=== PATIENT | male | born 1945 | race Caucasian/White ===

== ENCOUNTER 2016-06-08 14:21 | Inpatient (IN) | payer MEDICARE ==
[~2016-06-08] VITALS: Ht 162.6 cm; Wt 54.7 kg
[2016-06-08] VITALS (8 sets, daily range): BP systolic 154–194; BP diastolic 81–104; PULSE 86–106; RESP 16–18; TEMP 98.2–98.3; O2SAT 96–98
[~2016-06-08 14:21] MED LIST: ALPR0.25 PO; ASPI81TA82 PO; ATOR20TA PO; CARD180C5 PO; LEXA5TAB PO; LISI-360 PO; MEGE40TA3 PO; METO100T PO; NOVONP2 SQ; TRIA50 PO; ZOLP10TA3 PO
[2016-06-08] MEDS ORDERED: SODIUM CHLOR 0.9% 1000 ML INJ 1,000 ML IV SCH (14:51)
[2016-06-08] MEDS ORDERED: MORPHINE SULFATE 4 MG/ML INJ IV PUSH ONE (15:00)
[2016-06-08] MEDS ORDERED: ONDANSETRON HCL 4 MG/2 ML VIAL IVP ONE (15:00)
[2016-06-08] MEDS ORDERED: SODIUM CHLORIDE 0.9% FLUSH 5 ML FLUSH IVF PRN (15:00)
--- NOTE | 2016-06-08 15:17 | PD ---
HPI Chief Complaint: GI Complaint Time Seen by Provider: 14:35 Travel History International Travel<30 days: No Contact w/Intl Traveler<30days: No Traveled to known affect area: No History of Present Illness HPI The patient is a 71-year-old male who presents to the emergency department for nausea, vomiting, difficulty swallowing. The patient has a history of pancreatic cancer who is currently being treated by his oncologist, Dr. Amaya. The patient last received chemotherapy last , is next scheduled to have chemotherapy on June 23. The patient was recently evaluated at [facility] in [place], [place], for a second opinion in regards to his pancreatic cancer for possible evaluation of being placed into a new study. The patient also states he underwent surgery at [facility] in [place], [place], for possible Whipple procedure. However, the patient was noted to have a mass on his liver and a Whipple procedure was aborted. The patient did have a stent placed into the biliary system secondary to obstruction by art coordinator in [place], [place]. The patient's primary physician in the local areas Dr. Gonzales, his oncologist is Dr. Amaya , and his local art coordinator is Dr. Durham. The patient notes increasing difficulty swallowing has been unable to swallow any solids since [place] when he had a small piece of wire. He notes increasing difficulty in swallowing liquids and secretions. Patient complains of pain and spasming of the superior esophageal area when swallowing. He also notes increasing lethargy and weakness secondary to poor oral intake. PFSH Past Medical History Anxiety: Yes Cancer: Yes (PANCREAS) Cardiovascular Problems: No High Cholesterol: Yes Diabetes: Yes Endocrine: No Genitourinary: No Hepatitis: No Hiatal Hernia: No Hypertension: Yes Immune Disorder: No Musculoskeletal: No Neurologic: No Psychiatric: No Reproductive: No Respiratory: No Thyroid Disease: No Past Surgical History Abdominal Surgery: No AICD: No Cardiac Surgery: No Ear Surgery: No Endocrine Surgery: No Eye Surgery: Yes (BILAT CATARACTS) Genitourinary Surgery: No Gynecologic Surgery: No Joint Replacement: No Oral Surgery: No Pacemaker: No Thoracic Surgery: No Social History Alcohol Use: Yes (DAILY) Tobacco Use: No Substance Use: No Allergies-Medications (Allergen,Severity, Reaction): Coded Allergies: No Known Allergies (Unverified , 1/2/17) Reported Meds & Prescriptions Reported Meds & Active Scripts Active Reported Oxycodone (Oxycodone HCl) 5 Mg Cap 5 Mg PO Q4H PRN Creon (Amylase/Lipase/Protease) 24,000-76,000-120,000 Units Cap 1 Cap PO QID Hydrocodone-Acetaminophen 5-325 mg Tab 1 Tab PO Q4H PRN Potassium Chloride ER (Potassium Chloride) 20 Meq Tab 20 Meq PO DAILY Mirtazapine 15 Mg Tab Unknown Dose PO DAILY Novolin N Inj (Insulin Human NPH) 1,000 Unit/10 Ml Vial 8 Units SQ BID Aspirin 81 Mg Tabdr 81 Mg PO DAILY Zolpidem (Zolpidem Tartrate) 10 Mg Tab 10 Mg PO HS PRN Atorvastatin (Atorvastatin Calcium) 20 Mg Tab 20 Mg PO HS Diltiazem CD 24 HR 180 Mg Caper 180 Mg PO DAILY Metoprolol Tartrate 100 Mg Tab 100 Mg PO BID Lisinopril 10 Mg Tab 10 Mg PO DAILY Review of Systems Except as stated in HPI: all other systems reviewed are Neg General / Constitutional: No: Fever HENT: No: Lightheadedness Cardiovascular: Positive: Chest Pain or Discomfort (pain located in the superior chest area when swallowing) Gastrointestinal: Positive: Nausea, Abdominal Pain (chronic abdominal pain secondary to pancreatic cancer), Dysphagia, Loss of Appetite, No: Vomiting, Diarrhea Genitourinary: No: Decreased Urinary Output Musculoskeletal: Positive: Weakness Neurologic: Positive: Weakness Physical Exam Narrative GENERAL: Awake, alert, pleasant 71-year-old male who appears his stated age and is in no acute respiratory distress. Mild cachexia. SKIN: Warm and dry. HEAD: Atraumatic. Normocephalic. EYES: Pupils equal and round. No scleral icterus. No injection or drainage. ENT: No nasal bleeding or discharge. Dry mucous membranes. No visible plaques in the oropharynx. NECK: Trachea midline. No JVD. CARDIOVASCULAR: Regular, tachycardic with a heart rate of 110. Port in place left chest wall. RESPIRATORY: No accessory muscle use. Clear to auscultation. Breath sounds equal bilaterally. GASTROINTESTINAL: Abdomen soft, healing midline surgical scar. No rebound tenderness. MUSCULOSKELETAL: No obvious deformities. No clubbing. No cyanosis. No edema. NEUROLOGICAL: Awake and alert. No obvious cranial nerve deficits. Motor grossly within normal limits. Normal speech. PSYCHIATRIC: Appropriate mood and affect; insight and judgment normal. Data Data Last Documented VS Vital Signs Date Time Temp Pulse Resp B/P Pulse Ox O2 Delivery O2 Flow Rate FiO2 06/08/16 15:28 16 06/08/16 14:45 98 Room Air 06/08/16 14:45 98.2 97 154/83 Orders Complete Blood Count With Diff (06/08/16 14:51) Comprehensive Metabolic Panel (06/08/16 14:51) Lipase (06/08/16 14:51) Lactic Acid (06/08/16 14:51) Urinalysis - C+S If Indicated (06/08/16 14:51) Iv Access Insert/Monitor (06/08/16 14:51) Ecg Monitoring (06/08/16 14:51) Oximetry (06/08/16 14:51) Morphine Inj (Morphine Inj) (06/08/16 15:00) Ondansetron Inj (Zofran Inj) (06/08/16 15:00) Sodium Chlor 0.9% 1000 Ml Inj (Ns 1000 M (06/08/16 14:51) Sodium Chloride 0.9% Flush (Ns Flush) (06/08/16 15:00) Chest, Single Ap (06/08/16 14:51) Consult Gastroenterology (06/08/16 ) Labs Laboratory Tests Test 06/08/16 15:00 White Blood Count 5.4 TH/MM3 Red Blood Count 3.91 MIL/MM3 Hemoglobin 10.5 GM/DL Hematocrit 32.3 % Mean Corpuscular Volume 82.4 FL Mean Corpuscular Hemoglobin 26.8 PG Mean Corpuscular Hemoglobin 32.5 % Concent Red Cell Distribution Width 15.3 % Platelet Count 278 TH/MM3 Mean Platelet Volume 7.1 FL Neutrophils (%) (Auto) 75.0 % Lymphocytes (%) (Auto) 14.9 % Monocytes (%) (Auto) 5.5 % Eosinophils (%) (Auto) 3.8 % Basophils (%) (Auto) 0.8 % Neutrophils # (Auto) 4.1 TH/MM3 Lymphocytes # (Auto) 0.8 TH/MM3 Monocytes # (Auto) 0.3 TH/MM3 Eosinophils # (Auto) 0.2 TH/MM3 Basophils # (Auto) 0.0 TH/MM3 CBC Comment DIFF FINAL Differential Comment Sodium Level 139 MEQ/L Potassium Level 3.3 MEQ/L Chloride Level 102 MEQ/L Carbon Dioxide Level 23.5 MEQ/L Anion Gap 14 MEQ/L Blood Urea Nitrogen 26 MG/DL Creatinine 0.70 MG/DL Estimat Glomerular Filtration 111 ML/MIN Rate Random Glucose 124 MG/DL Lactic Acid Level 0.9 mmol/L Calcium Level 9.2 MG/DL Total Bilirubin 0.5 MG/DL Aspartate Amino Transf 30 U/L (AST/SGOT) Alanine Aminotransferase 37 U/L (ALT/SGPT) Alkaline Phosphatase 158 U/L Total Protein 7.2 GM/DL Albumin 3.1 GM/DL Lipase 37 U/L [facility] Medical Decision Making Medical Screen Exam Complete: Yes Emergency Medical Condition: Yes Medical Record Reviewed: Yes Interpretation(s) Chest x-ray reveals no evidence of acute cardiopulmonary disease Laboratory Tests Test 06/08/16 15:00 White Blood Count 5.4 TH/MM3 Red Blood Count 3.91 MIL/MM3 Hemoglobin 10.5 GM/DL Hematocrit 32.3 % Mean Corpuscular Volume 82.4 FL Mean Corpuscular Hemoglobin 26.8 PG Mean Corpuscular Hemoglobin 32.5 % Concent Red Cell Distribution Width 15.3 % Platelet Count 278 TH/MM3 Mean Platelet Volume 7.1 FL Neutrophils (%) (Auto) 75.0 % Lymphocytes (%) (Auto) 14.9 % Monocytes (%) (Auto) 5.5 % Eosinophils (%) (Auto) 3.8 % Basophils (%) (Auto) 0.8 % Neutrophils # (Auto) 4.1 TH/MM3 Lymphocytes # (Auto) 0.8 TH/MM3 Monocytes # (Auto) 0.3 TH/MM3 Eosinophils # (Auto) 0.2 TH/MM3 Basophils # (Auto) 0.0 TH/MM3 CBC Comment DIFF FINAL Differential Comment Sodium Level 139 MEQ/L Potassium Level 3.3 MEQ/L Chloride Level 102 MEQ/L Carbon Dioxide Level 23.5 MEQ/L Anion Gap 14 MEQ/L Blood Urea Nitrogen 26 MG/DL Creatinine 0.70 MG/DL Estimat Glomerular Filtration 111 ML/MIN Rate Random Glucose 124 MG/DL Lactic Acid Level 0.9 mmol/L Calcium Level 9.2 MG/DL Total Bilirubin 0.5 MG/DL Aspartate Amino Transf 30 U/L (AST/SGOT) Alanine Aminotransferase 37 U/L (ALT/SGPT) Alkaline Phosphatase 158 U/L Total Protein 7.2 GM/DL Albumin 3.1 GM/DL Lipase 37 U/L Differential Diagnosis Differential diagnosis includes esophageal stricture, esophagitis, esophageal compression, metastatic cancer, pancreatic mass, esophageal ring. Narrative Course The patient's port was accessed, labs are drawn and sent, and the patient was placed on cardiac telemetry monitoring and continuous pulse oximetry monitoring. The patient was administered IV fluids, Zofran, and morphine for his symptoms. Chest x-ray was obtained. LFTs and lipase were sent to lab. The patient's BUN is 26 with creatinine 0.7, greater than a 21 ratio consistent with dehydration. Potassium is mildly low at 3.3, therefore, the potassium was replaced intravenously. I had a discussion with Dr. Hurst who agrees with admission. I discussed the patient with the on-call gastric urologist for Dr. Rodriguez, Dr. Brewer, who agrees with transferring the patient to [facility], as the patient may need direct endoscopy to evaluate for possible stricture and/or esophagitis. Physician Communication Physician Communication I discussed the patient with Dr. Brewer and Dr. Hurst, who agrees with admission. Diagnosis Primary Impression: Odynophagia Additional Impressions: Dehydration Pancreatic cancer Qualified Code: C25.9 - Malignant neoplasm of pancreas, unspecified location of malignancy Admitting Information Admitting Physician Requests: Admit Condition: Stable Kirby Knox MD Jun 08, 2016 15:17
[2016-06-08 15:22] LABS: AUTOMATED NEUTROPHIL # 4.1 TH/MM3 (1.8-7.7); BASOPHIL % 0.8 % (0.0-2.0); EOSINOPHIL # 0.2 TH/MM3 (0-0.4); EOSINOPHIL % 3.8 % (0.0-4.0); HEMATOCRIT 32.3 % (39.0-51.0); LYMPH % 14.9 % (9.0-44.0); LYMPHOCYTE # 0.8 TH/MM3 (1.0-4.8); MEAN CELL VOLUME 82.4 FL (80.0-100.0); MEAN CORPUSCULAR HEMOGLOBIN 26.8 PG (27.0-34.0); MEAN CORPUSCULAR HGB CONC 32.5 % (32.0-36.0); MONO % 5.5 % (0.0-8.0); PLATELET COUNT 278 TH/MM3 (150-450); RED BLOOD COUNT 3.91 MIL/MM3 (4.50-5.90); RED CELL DISTRIBUTION WIDTH 15.3 % (11.6-17.2); WHITE BLOOD COUNT 5.4 TH/MM3 (4.0-11.0)
[2016-06-08 15:23] LABS: HEMO FLAGS DIFF FINAL
[2016-06-08 15:30] LABS: CHLORIDE 102 MEQ/L (98-107); POTASSIUM 3.3 MEQ/L (3.5-5.1); SODIUM (NA) 139 MEQ/L (136-145)
[2016-06-08 15:34] LABS: ANION GAP 14 MEQ/L (5-15); BICARBONATE 23.5 MEQ/L (21.0-32.0); BLOOD UREA NITROGEN 26 MG/DL (7-18)
[2016-06-08 15:36] LABS: ALT (GPT) 37 U/L (12-78)
[2016-06-08 15:37] LABS: AST (GOT) 30 U/L (15-37); GLOMERULAR FILTRATION RATE 111 ML/MIN (>89)
[2016-06-08 15:38] LABS: TOTAL BILIRUBIN ADULT 0.5 MG/DL (0.2-1.0)
[2016-06-08 15:40] LABS: ALKALINE PHOSPHATASE 158 U/L (45-117)
[2016-06-08] MEDS ORDERED: METO100T PO (15:47)
[2016-06-08] MEDS ORDERED: ATOR20TA15 PO (15:47)
[2016-06-08] MEDS ORDERED: POTA-163 PO (15:47)
[2016-06-08] MEDS ORDERED: MIRTA15 PO (15:47)
[2016-06-08] MEDS ORDERED: HYDR-3516 PO (15:47)
[2016-06-08] MEDS ORDERED: NOVONP2 SQ (15:47)
[2016-06-08] MEDS ORDERED: OXYC1CAP PO (15:47)
[2016-06-08] MEDS ORDERED: DILT180C56 PO (15:47)
[2016-06-08] MEDS ORDERED: LISI10TA3 PO (15:47)
[2016-06-08] MEDS ORDERED: ZOLP10TA3 PO (15:47)
[2016-06-08] MEDS ORDERED: ASPI1TAB69 PO (15:47)
[2016-06-08] MEDS ORDERED: CREON24 PO (15:47)
--- NOTE | 2016-06-08 15:56 | RADHPO ---
EXAM DATE/TIME: 06/08/2016 15:11 [facility] COMPARISON: No previous studies available for comparison. INDICATIONS : Chest pain, weakness MEDICAL HISTORY : Hypertension. Diabetes mellitus type II. SURGICAL HISTORY : ENCOUNTER: Initial ACUITY: 2 days PAIN SCORE: 6/10 LOCATION: Bilateral chest FINDINGS: A single view of the chest demonstrates the lungs to be symmetrically aerated without evidence of mas s, infiltrate or effusion. The cardiomediastinal contours are unremarkable. Osseous structures are intact. There is a left subclavian Zjrsno-h-Hvws catheter with tip in the superior vena cava. CONCLUSION: No evidence of acute cardiopulmonary disease. Gustavo Thomason MD on June 08, 2016 at 15:55 Board Certified Radiologist. This report was verified electronically.
[2016-06-08] MEDS ORDERED: POTASSIUM CHLOR 20 MEQ PREMIX 100 ML IV SCH (16:15)
[2016-06-08] MEDS ORDERED: SODIUM CHLOR 0.9% 1000 ML INJ 1,000 ML IV ONE (16:15)
[2016-06-08 16:57] LABS: BLOOD, URINE NEG (NEG); GLUCOSE,URINE NEG (NEG); NITRITE,URINE NEG (NEG)
[2016-06-08 17:01] LABS: KETONE, URINE 80 OR GREATER mg/dL (NEG)
[2016-06-08 17:08] LABS: COMMENT (UR) CULT NOT INDICATED; CULTURE IF INDICATED CULT NOT INDICATED; MUCUS URINE FEW /lpf (OCC); SQUAMOUS EPITHELIAL CELL URINE 0-2 /hpf (0-5); URINE COLOR YELLOW (YELLW/STRAW); WBC, URINE 0-2 /hpf (0-5)
[2016-06-08] MEDS ORDERED: NALOXONE HCL 0.4 MG/ML AMP IV PRN (17:15)
--- NOTE | 2016-06-08 17:17 | HHI.HP ---
HPI Service [facility] Hospitalists Primary Care Physician Pierce Gonzales, PhD, MD Admission Diagnosis Odynophagia, dehydration, pancreatic cancer Chief Complaint: inability to take in solids or liquids for 2 days Travel History International Travel<30 Days: No Contact w/Intl Traveler <30 Da: No Traveled to Known Affected Are: No History of Present Illness The patient is a 71-year-old male who presents to the emergency department for nausea, vomiting, difficulty swallowing. The patient has a history of pancreatic cancer who is currently being treated by his oncologist, Dr. Amaya. The patient last received chemotherapy last , is next scheduled to have chemotherapy on June 23. The patient was recently evaluated at [facility] in [place], [place], for a second opinion in regards to his pancreatic cancer for possible evaluation of being placed into a new study. The patient also states he underwent surgery at [facility] in [place], [place], for possible Whipple procedure. However, the patient was noted to have a mass on his liver and a Whipple procedure was aborted. The patient did have a stent placed into the biliary system secondary to obstruction by land title examiner in [place], [place]. The patient's primary physician in the local areas Dr. Gonzales, his oncologist is Dr. Amaya , and his local land title examiner is Dr. Durham. The patient notes increasing difficulty swallowing has been unable to swallow any solids since [place] when he had a small piece of wire. He notes increasing difficulty in swallowing liquids and secretions. Patient complains of pain and spasming of the superior esophageal area when swallowing. He also notes increasing lethargy and weakness secondary to poor oral intake. Case discussed with GI will require direct visualization esophagus. Will continue IV fluid and sliding scale insulin. Review of Systems Constitutional: COMPLAINS OF: Change in appetite Gastrointestinal: COMPLAINS OF: Nausea, Difficulty Swallowing Past Family Social History Past Medical History pancreatic cancer,dm,htn,depression,hyperlipidemia Past Surgical History port placement ,ERCP,cataracts Reported Medications loratab,oxycodone breakthrough pain, potassium 20,novolin 8 bid,asa 81,ambien 10 ,lipitor 20 metoprolol 100 bid,diltiazem 180 lisinopril 10 Allergies: Coded Allergies: No Known Allergies (Unverified , 06/08/16) Social History positive etoh Physical Exam Vital Signs Vital Signs Date Time Temp Pulse Resp B/P Pulse Ox O2 Delivery O2 Flow Rate FiO2 06/08/16 15:28 16 06/08/16 14:45 17 98 Room Air 06/08/16 14:45 98.2 97 17 154/83 98 Physical Exam GENERAL: This is a well-nourished, well-developed patient, in no apparent distress.Mild cachexia SKIN: No rashes, ecchymoses or lesions. Cool and dry. HEAD: Atraumatic. Normocephalic. No temporal or scalp tenderness. EYES: Pupils equal round and reactive. Extraocular motions intact. No scleral icterus. No injection or drainage. ENT: Nose without bleeding, purulent drainage or septal hematoma. Throat without erythema, tonsillar hypertrophy or exudate. Uvula midline. Airway patent. NECK: Trachea midline. No JVD or lymphadenopathy. Supple, nontender, no meningeal signs. CARDIOVASCULAR: Regular rate and rhythm without murmurs, gallops, or rubs. RESPIRATORY: Clear to auscultation. Breath sounds equal bilaterally. No wheezes , rales, or rhonchi. GASTROINTESTINAL: Abdomen soft, non-tender, nondistended. No hepato-splenomegaly , or palpable masses. No guarding. MUSCULOSKELETAL: Extremities without clubbing, cyanosis, or edema. No joint tenderness, effusion, or edema noted. No calf tenderness. Negative Homans sign bilaterally. NEUROLOGICAL: Awake and alert. Cranial nerves II through XII intact. Motor and sensory grossly within normal limits. Five out of 5 muscle strength in all muscle groups. Normal speech. Laboratory Laboratory Tests Test 06/08/16 06/08/16 15:00 16:30 White Blood Count 5.4 Red Blood Count 3.91 Hemoglobin 10.5 Hematocrit 32.3 Mean Corpuscular Volume 82.4 Mean Corpuscular Hemoglobin 26.8 Mean Corpuscular Hemoglobin 32.5 Concent Red Cell Distribution Width 15.3 Platelet Count 278 Mean Platelet Volume 7.1 Neutrophils (%) (Auto) 75.0 Lymphocytes (%) (Auto) 14.9 Monocytes (%) (Auto) 5.5 Eosinophils (%) (Auto) 3.8 Basophils (%) (Auto) 0.8 Neutrophils # (Auto) 4.1 Lymphocytes # (Auto) 0.8 Monocytes # (Auto) 0.3 Eosinophils # (Auto) 0.2 Basophils # (Auto) 0.0 CBC Comment DIFF FINAL Differential Comment Sodium Level 139 Potassium Level 3.3 Chloride Level 102 Carbon Dioxide Level 23.5 Anion Gap 14 Blood Urea Nitrogen 26 Creatinine 0.70 Estimat Glomerular Filtration 111 Rate Random Glucose 124 Lactic Acid Level 0.9 Calcium Level 9.2 Total Bilirubin 0.5 Aspartate Amino Transf 30 (AST/SGOT) Alanine Aminotransferase 37 (ALT/SGPT) Alkaline Phosphatase 158 Total Protein 7.2 Albumin 3.1 Lipase 37 Urine pH 6.0 Urine Protein TRACE Urine Glucose (UA) NEG Urine Ketones 80 OR GREATER Urine Occult Blood NEG Urine Nitrite NEG Urine Bilirubin NEG Urine Leukocyte Esterase NEG Result Diagram: 06/08/16 1500 06/08/16 1500 Course in er received nausea med potassium Assessment and Plan Problem List: (1) Odynophagia Status: Acute Plan: GI consult will endoscopy planned empiric protonix (2) Dehydration Status: Acute Plan: continue IV fluid (3) Pancreatic cancer Status: Chronic Plan: receiving chemo next due date jun 23 will consult oncology Assessment and Plan continue home meds hold regular insulin dose and use prn sliding scale Code Status full Discussed Condition With patient Physician Certification 2 Midnight Certification Type: Admission for Inpatient Services Order for Inpatient Services The services are ordered in accordance with Medicare regulations or non- Medicare payer requirements, as applicable. In the case of services not specified as inpatient-only, they are appropriately provided as inpatient services in accordance with the 2-midnight benchmark. Estimated LOS (days): 3 3 days is the estimated time the patient will need to remain in the hospital, assuming treatment plan goals are met and no additional complications. Post-Hospital Plan: Not yet determined Problem Qualifiers (1) Pancreatic cancer: Qualified Code: C25.9 - Malignant neoplasm of pancreas, unspecified location of malignancy Rob Hurst MD Jun 08, 2016 17:17
[2016-06-08] MEDS ORDERED: 1/2 NS + KCL 20 MEQ INJ 1,000 ML IV SCH (17:30)
[2016-06-08] MEDS: LIPASE/PROTEASE/AMYLASE (24,000/76,000/120,000) CAP PO SCH ×2 (17:51→21:00)
[2016-06-08] MEDS: ENALAPRILAT 1.25 MG/ML VIAL IV PUSH PRN (17:52)
[2016-06-08] MEDS ORDERED: cloNIDine HCL 0.1 MG/24 HR PATCH TD ONE (18:00)
[2016-06-08] MEDS: 1/2 NS + KCL 20 MEQ INJ 1,000 ML IV SCH (18:39)
[2016-06-08] MEDS ORDERED: ACETAMINOPHEN/HYDROcodone 325 MG/5 MG TAB PO PRN (20:00)
[2016-06-08] MEDS: METOPROLOL TARTRATE 100 MG TAB PO SCH (20:27)
[2016-06-08] MEDS: INSULIN ASPART SUPPLEMENTAL SCALE SQ SCH (21:00)
[2016-06-08] MEDS: SODIUM CHLORIDE 0.9% FLUSH 5 ML FLUSH FLUSH SCH (21:00)
[2016-06-08] MEDS: HYDROmorphone HCL PF 1 MG/ML VIAL IV PUSH PRN (21:41)
[2016-06-08] MEDS ORDERED: GLUCAGON 1 MG/ML VIAL OTHER PRN (21:45)
[2016-06-08] MEDS ORDERED: DEXTROSE 50% IN WATER 50 ML VIAL(D50) IV PUSH PRN (21:45)
[2016-06-08] MEDS: PANTOPRAZOLE SODIUM 40 MG VIAL IV PUSH SCH (22:06)
[2016-06-09] VITALS (8 sets, daily range): BP systolic 146–196; BP diastolic 79–93; PULSE 82–112; RESP 18–20; TEMP 97.3–98.4; O2SAT 96–97
[2016-06-09] MEDS: ENALAPRILAT 1.25 MG/ML VIAL IV PUSH PRN ×2 (00:02→06:14)
[2016-06-09] MEDS: HYDROmorphone HCL PF 1 MG/ML VIAL IV PUSH PRN ×5 (02:08→21:54)
[2016-06-09 05:45] LABS: AUTOMATED NEUTROPHIL # 3.3 TH/MM3 (1.8-7.7); BASOPHIL # 0.1 TH/MM3 (0-0.2); EOSINOPHIL # 0.3 TH/MM3 (0-0.4); EOSINOPHIL % 6.6 % (0.0-4.0); HEMATOCRIT 27.9 % (39.0-51.0); HEMO FLAGS DIFF FINAL; LYMPH % 24.1 % (9.0-44.0); LYMPHOCYTE # 1.3 TH/MM3 (1.0-4.8); MEAN CELL VOLUME 81.1 FL (80.0-100.0); MEAN CORPUSCULAR HEMOGLOBIN 26.8 PG (27.0-34.0); MONO % 6.8 % (0.0-8.0); NEUT % 61.5 % (16.0-70.0); PLATELET COUNT 215 TH/MM3 (150-450); RED BLOOD COUNT 3.44 MIL/MM3 (4.50-5.90); RED CELL DISTRIBUTION WIDTH 16.1 % (11.6-17.2); WHITE BLOOD COUNT 5.3 TH/MM3 (4.0-11.0)
[2016-06-09 05:53] LABS: ALT (GPT) 33 U/L (12-78); ANION GAP 12 MEQ/L (5-15); AST (GOT) 24 U/L (15-37); BICARBONATE 22.1 MEQ/L (21.0-32.0); BLOOD UREA NITROGEN 16 MG/DL (7-18); CHLORIDE 105 MEQ/L (98-107); GLOMERULAR FILTRATION RATE 135 ML/MIN (>89); POTASSIUM 3.6 MEQ/L (3.5-5.1); SODIUM (NA) 139 MEQ/L (136-145)
[2016-06-09 05:56] LABS: ALKALINE PHOSPHATASE 149 U/L (45-117); TOTAL BILIRUBIN ADULT 0.4 MG/DL (0.2-1.0)
[2016-06-09] MEDS: ONDANSETRON HCL 4 MG/2 ML VIAL IVP PRN ×2 (06:15→18:55)
[2016-06-09] MEDS: 1/2 NS + KCL 20 MEQ INJ 1,000 ML IV SCH ×2 (06:16→15:15)
[2016-06-09] MEDS: INSULIN ASPART SUPPLEMENTAL SCALE SQ SCH ×4 (06:50→20:39)
[2016-06-09] MEDS: SODIUM CHLORIDE 0.9% FLUSH 5 ML FLUSH FLUSH SCH ×2 (08:05→20:36)
[2016-06-09] MEDS: POTASSIUM CHLORIDE 20 MEQ CONTROLLED RELEASE TAB PO SCH (09:00)
[2016-06-09] MEDS: DILTIAZEM-CD 180 MG CAP ER PO SCH (09:00)
[2016-06-09] MEDS: ASPIRIN EC 81 MG TABEC PO SCH (09:00)
[2016-06-09] MEDS: METOPROLOL TARTRATE 100 MG TAB PO SCH ×2 (09:00→20:33)
[2016-06-09] MEDS: LISINOPRIL 10 MG TAB PO SCH (09:00)
[2016-06-09] MEDS: LIPASE/PROTEASE/AMYLASE (24,000/76,000/120,000) CAP PO SCH ×4 (09:00→20:32)
[2016-06-09] MEDS ORDERED: hydrALAZINE HCL 20 MG/ML VIAL IV PUSH PRN (10:00)
--- NOTE | 2016-06-09 10:35 | HHI.PR ---
Subjective Remarks Pt states that he has had worsening odynophagia since aborted whipple procedure 05/13/16 Over the last few days symptoms had worsened to the point where pt could NOT swallow large pills. He was able to swallow small pills. Pt able to tolerate liquids, if he drank slowly. Pt is able to swallow saliva. Objective Vitals Vital Signs Date Time Temp Pulse Resp B/P Pulse Ox O2 Delivery O2 Flow Rate FiO2 06/09/16 08:00 97.3 102 18 146/93 97 06/09/16 05:03 178/88 Automatic Cuff 06/09/16 04:00 98.4 94 18 189/91 96 06/09/16 02:00 180/85 06/09/16 00:00 98.0 82 18 185/90 96 06/08/16 22:12 88 175/89 06/08/16 20:00 98.3 106 18 183/99 98 06/08/16 19:40 116 18 194/81 97 06/08/16 18:44 95 16 186/86 96 Room Air 06/08/16 17:01 86 16 171/89 97 Room Air 06/08/16 16:12 97 16 158/104 97 Room Air 06/08/16 15:28 16 06/08/16 15:12 96 16 162/85 98 Room Air 06/08/16 14:45 17 98 Room Air 06/08/16 14:45 98.2 97 17 154/83 98 06/08/16 06/08/16 06/09/16 15:00 23:00 07:00 Intake Total 2100 ml Output Total 200 ml Balance 2100 ml -200 ml Intake IV Total 2100 ml Output Urine Total 200 ml # Voids 2 Result Diagram: 06/09/16 0520 06/09/16 0520 Imaging Last Impressions Chest X-Ray 06/08/16 1451 Signed Impressions: Service Date/Time: Wednesday, June 08, 2016 15:11 - CONCLUSION: No evidence of acute cardiopulmonary disease. Gustavo Thomason MD Objective Remarks GENERAL: This is a well-nourished, well-developed patient, in no apparent distress. CARDIOVASCULAR: Regular rate and rhythm without murmurs, gallops, or rubs. RESPIRATORY: Clear to auscultation. Breath sounds equal bilaterally. No wheezes , rales, or rhonchi. GASTROINTESTINAL: Abdomen soft, non-tender, nondistended. Normal active bowel sounds MUSCULOSKELETAL: Extremities without clubbing, cyanosis, or edema. NEURO: Alert & Oriented x4 to person, place, time, situation. Moves all ext x4 A/P Problem List: (1) Odynophagia Status: Acute Plan: - await GI consultation - await EGD - IV protonix (2) Dehydration Status: Acute Plan: - improved - continue IV fluid (3) HTN (hypertension) Status: Acute Plan: - Pt unable to tolerate PO antihypertensives - transfer to [facility] - trial of Catapres transdermal - prn Vasotec - prn hydralazine (4) Pancreatic cancer Status: Chronic Plan: - clinical stage IB, T2N0M0 - adenocarcinoma, by FNA of pancreatic head mass - undergoing chemotherapy per Dr. Amaya, next chemo due 06/23 - pt underwent ERCP and stent at [facility] 12/20/15 - CT/PET 12/27/15 No distant site metastic disease. T= 3.5x4.9cm pancreatic head mass - await Oncology consultation (5) DM2 (diabetes mellitus, type 2) Status: Acute Plan: - SSI (6) Anxiety Status: Acute Plan: - ativan prn (7) CKD (chronic kidney disease) stage 3, GFR 30-59 ml/min Status: Acute Plan: - observe Problem Qualifiers (1) HTN (hypertension): Qualified Code: I10 - Essential hypertension (2) Pancreatic cancer: Qualified Code: C25.9 - Malignant neoplasm of pancreas, unspecified location of malignancy (3) DM2 (diabetes mellitus, type 2): Qualified Code: E11.8 - Type 2 diabetes mellitus with complication, with long- term current use of insulin Billy Bright DO Jun 09, 2016 10:34
[2016-06-09] MEDS ORDERED: LORazepam 2 MG/ML VIAL IV PUSH PRN ×2 (10:45→22:45)
[2016-06-09] MEDS ORDERED: INSULIN ASPART SUPPLEMENTAL SCALE SQ SCH (11:00)
[2016-06-09] MEDS ORDERED: cloNIDine HCL 0.3 MG/24 HR PATCH TD SCH (12:00)
[2016-06-09] MEDS ORDERED: PROPOFOL 200 MG/20 ML AMP IV ONE (13:52)
--- NOTE | 2016-06-09 15:15 | HHI.GIFU ---
Subjective Remarks feels ok, still c/o dysphagia Objective Vitals I&O Vital Signs Date Time Temp Pulse Resp B/P Pulse Ox O2 Delivery O2 Flow Rate FiO2 06/09/16 12:28 97.3 102 18 196/93 97 06/09/16 08:00 97.3 102 18 196/93 97 06/09/16 05:03 178/88 Automatic Cuff 06/09/16 04:00 98.4 94 18 189/91 96 06/09/16 02:00 180/85 06/09/16 00:00 98.0 82 18 185/90 96 06/08/16 22:12 88 175/89 06/08/16 20:00 98.3 106 18 183/99 98 06/08/16 19:40 116 18 194/81 97 06/08/16 18:44 95 16 186/86 96 Room Air 06/08/16 17:01 86 16 171/89 97 Room Air 06/08/16 16:12 97 16 158/104 97 Room Air 06/08/16 15:28 16 06/08/16 15:12 96 16 162/85 98 Room Air I/O 06/08/16 06/08/16 06/08/16 06/09/16 06/09/16 06/09/16 07:00 15:00 23:00 07:00 15:00 23:00 Intake Total 2100 ml Output Total 200 ml Balance 2100 ml -200 ml Intake IV Total 2100 ml Output Urine Total 200 ml # Voids 2 Laboratory Laboratory Tests Test 06/08/16 06/09/16 16:30 05:20 Urine Collection Type Urine Color YELLOW Urine Turbidity CLEAR Urine pH 6.0 Urine Specific Lester 1.025 Urine Protein TRACE Urine Glucose (UA) NEG Urine Ketones 80 OR GREATER Urine Occult Blood NEG Urine Nitrite NEG Urine Bilirubin NEG Urine Leukocyte Esterase NEG Urine WBC 0-2 Urine Squamous Epithelial 0-2 Cells Urine Mucus FEW Microscopic Urinalysis Comment CULT NOT INDICATED White Blood Count 5.3 Red Blood Count 3.44 Hemoglobin 9.2 Hematocrit 27.9 Mean Corpuscular Volume 81.1 Mean Corpuscular Hemoglobin 26.8 Mean Corpuscular Hemoglobin 33.0 Concent Red Cell Distribution Width 16.1 Platelet Count 215 Mean Platelet Volume 7.3 Neutrophils (%) (Auto) 61.5 Lymphocytes (%) (Auto) 24.1 Monocytes (%) (Auto) 6.8 Eosinophils (%) (Auto) 6.6 Basophils (%) (Auto) 1.0 Neutrophils # (Auto) 3.3 Lymphocytes # (Auto) 1.3 Monocytes # (Auto) 0.4 Eosinophils # (Auto) 0.3 Basophils # (Auto) 0.1 CBC Comment DIFF FINAL Differential Comment Sodium Level 139 Potassium Level 3.6 Chloride Level 105 Carbon Dioxide Level 22.1 Anion Gap 12 Blood Urea Nitrogen 16 Creatinine 0.59 Estimat Glomerular Filtration 135 Rate Random Glucose 88 Calcium Level 8.9 Total Bilirubin 0.4 Aspartate Amino Transf 24 (AST/SGOT) Alanine Aminotransferase 33 (ALT/SGPT) Alkaline Phosphatase 149 Total Protein 6.2 Albumin 2.9 Physical Exam HEENT: Pupils round and reactive to light; normocephalic; atraumatic; no jaundice. Throat is clear. NECK: Neck is supple, no JVD, no lymphadenopathy. CHEST: Chest is clear to auscultation and percussion. CARDIAC: Regular rate and rhythm with no murmur gallop or rubs. ABDOMEN: Soft, nondistended, nontender; no hepatosplenomegaly; bowel sounds are present in all four quadrants. EXTREMITIES: No clubbing, cyanosis, or edema. SKIN: Normal; no rash; no jaundice. PROTECTIVE SERVICES CASE WORKER: No focal deficits; alert and oriented times three. Assessment and Plan Plan dysphagia, mild esophagitis, esophageal stricture S/P dilation with Savary will start PPI, and soft diet. Physician Comments patient was seen and examined, agree with above note and plan, barium swallow was done, no stricture and esophageal motility disorder, patient stated he is tolerating soft diet and pills, continue with that. we will F/U as needed. Elizabeth Thomason MD Jun 09, 2016 15:15
[2016-06-09] MEDS: hydrALAZINE HCL 20 MG/ML VIAL IV PUSH PRN (15:23)
--- NOTE | 2016-06-09 16:58 | MB ---
cc: APOLONIA DUONG M.D. DATE OF CONSULTATION 06/09/16 [address] Bright REASON FOR REFERRAL Dysphagia. HISTORY OF PRESENT ILLNESS Thank you for the consultation. This is a pleasant unfortunate 71-year-old gentleman who has pancreatic cancer and has failed Whipple. The patient had a metallic stent placed a few weeks ago. The patient received chemotherapy. The patient came complaining of odynophagia and dysphagia, noted to have a mass on his liver and Whipple procedure was aborted. The patient has difficulty swallowing, mostly pills, and he is still able to swallow liquids and secretions but now not able to swallow solid food or large pills. PAST MEDICAL HISTORY 1. Diabetes, 2. Depression, 3. Hyperlipidemia, 4. Hypertension 5. Pancreatic cancer with possible mass in the liver. REVIEW OF SYSTEMS All 12-point negative except HPI. PAST SURGERIES 1. Port placement 2. Cataract surgery 3. ERCP with metal stent placement MEDICATIONS Reviewed in the chart. SOCIAL HISTORY Positive for alcohol. No tobacco at this time. FAMILY HISTORY Noncontributory. ALLERGIES NO KNOWN DRUG ALLERGIES. PHYSICAL EXAMINATION GENERAL: Alert, oriented no acute distress. VITAL SIGNS: Stable. HEENT: Pupils are round, reactive to light. NECK: Supple. CHEST: Clear. CARDIAC: Regular rate and rhythm. ABDOMEN: Soft, nondistended. Positive bowel sounds. EXTREMITIES: No edema, clubbing or cyanosis. NEUROLOGIC: Neurologically intact. PSYCHIATRIC: Psychologically appropriate. LABORATORY DATA White count 5.3, hemoglobin 9.2, platelet 215, AST 24, ALT 33, alk phos 149, albumin 2.9, lipase 37. IMAGING STUDIES Chest x-ray Negative. ASSESSMENT/PLAN 1. A 71-year-old male with pancreatic cancer with possible mets to the liver being treated with chemotherapy. He has had stent placement in the past. 2. Dysphagia with mostly solids and pills. We will plan on doing upper endoscopy with possible dilation and evaluation of his upper GI tract. I discussed with the patient the procedure and complication. He agreed to have it done. This will be done today. Meanwhile, we will continue supportive care. MD ABELINO Pandey/ /3:20 PM /4:51 PM
[2016-06-09] MEDS ORDERED: GLYCERIN ADULT 2 GM SUPP RECTAL ONE (19:45)
[2016-06-09] MEDS ORDERED: SOD PHOSPHATE/SOD BIPHOSPHATE (ADULT) ENEMA 133ML PR PRN (19:45)
--- NOTE | 2016-06-09 20:22 | MB ---
cc: SANTO IVERSON RUBY ANNE E. M.D. DATE OF CONSULTATION: 06/09/2016 DATE OF : 1945 REFERRING PHYSICIAN: Dr. Iverson. CHIEF COMPLAINT: Dr. Iverson requested consultation for Mr. Handley regarding metastatic pancreatic cancer. HISTORY OF PRESENT ILLNESS: Mr. Handley is a 70 year-old man with a history of diabetes, anxiety, hypertension, chronic kidney disease, and chronic back pain. He was diagnosed with locally advanced pancreatic cancer and received perioperative chemotherapy with Folfirinox x7 treatments. He had an excellent response with decreasing CA19.9, with nadired at 230. He was referred to [facility] under the care of Dr. Brown Capone for definitive surgery. At the time of the surgery he was found to have metastatic disease confirmed in the liver. The planned Whipple procedure for curative surgery of his locally advanced pancreatic cancer was aborted. Mr. Handley took approximately eight weeks to recover from the attempted surgery. He had his amador removed. He had symptoms related to the metastatic pancreatic cancer such as weight loss, decrease in appetite, fatigue. Furthermore, his CA19.9 was increasing. On May 26, 2016, his CA19.9 was 1185. With that, he was started back on palliative chemotherapy with Folfirinox at a significant dose reduction. He developed delayed nausea and vomiting, and subsequent dysphagia leading up to the admission. Mr. Handley reports difficulty in swallowing. It improved after the dilation endoscopy this morning. He was able to eat some soft diet but shortly thereafter vomited. He feels constipated but has not been able to go for the last three days. He has impaction. He typically gets diarrhea associated with the Folfirinox chemotherapy. He has peripheral neuropathy. His pain is well-controlled on current regimen with the fentanyl patch. He has tolerated Dilaudid better. He reports that 1 milligram knocks him out and, therefore, has requested decrease in the dose but increase in the frequency. He has continued decrease in appetite and fatigue. He denies any swelling. PAST MEDICAL HISTORY: 1. Metastatic locally advanced pancreatic cancer. 2. Anxiety. 3. Diabetes. 4. Diverticulosis. 5. Constipation. 6. Hypertension. 7. History of insomnia. 8. Chronic kidney disease. 9. Anorexia. 10. Unintentional weight loss. PAST SURGICAL HISTORY: 1. Cataract removal. 2. Colonoscopy. 3. ERCP. 4. Port placement. 5. Attempted Whipple, aborted. ALLERGIES: NO KNOWN DRUG ALLERGIES. CURRENT MEDICATIONS: 1. Hydralazine. 2. Aspirin. 3. Diltiazem. 4. Prinivil. 5. Dilaudid p.r.n. 6. Lopressor. 7. Insulin sliding scale. 8. Protonix. 9. Creon. 10. Vasotec 11. Zofran. FAMILY HISTORY: Mother and father . No significant family history of cancer. SOCIAL HISTORY: . He quit smoking 20 years ago. He drinks occasionally. PHYSICAL EXAMINATION: VITAL SIGNS: Temperature 98.2, heart rate 91, respiratory rate 20, blood pressure 178/89. GENERAL: Mr. Handley is a cachectic appearing man who looks thinner than previous. He is unshaven. HEENT: Pupils equal, round, reactive to light and accommodation. Oropharynx is dry. NECK: Supple. LUNGS: Clear. CARDIOVASCULAR: Mild tachycardia. ABDOMEN: Soft, nontender. No fluid wave, suture lines, midline abdominal scar is well-healed. LOWER EXTREMITIES: No edema. NEUROLOGIC: Subjective peripheral neuropathy. LABORATORY DATA: Hemoglobin 9.2, platelet count and white blood cell count are normal. BUN 16, creatinine 0.9. ASSESSMENT AND PLAN: Mr. Handley is a 71 year-old man with locally advanced metastatic pancreatic cancer. He was confirmed to have metastatic disease to liver. The attempted definitive surgery was aborted. He is receiving palliative chemotherapy with Folfirinox. His course is complicated by nausea, vomiting, dysphagia and constipation. I had a lengthy discussion with Mr. Handley and his present at the consultation. I plan to continue palliative chemotherapy. His toxicity during this chemo cycle is quite different from his previous experience. He feels more fatigued. He has more constipation owing to his pain medication. I recommend continuing his longacting patch. I will increase the frequency of Dilaudid breakthrough to minimize the sedation that he is experiencing. His pain is currently 1 out of 10 at present. We will work on his constipation. He feels impacted. Will use glycerin suppositories. If that is not effective in helping him with a bowel movement, a Fleet's enema is ordered. A trial of Movantik may be helpful pending on the result of the glycerin suppositories or the enema. Gastroenterology is consulted. He was placed on a proton pump inhibitor. He is able to tolerate his pills. His blood pressure will be better controlled once he is able to take his blood pressure medications. We will continue to support him for the chemo related toxicity. It appears more that the constipation is related to the pain medication related toxicity. The dysphagia secondary to the esophageal stricture has been corrected and treated. We will continue to monitor his ability to tolerate p.o. and swallow in the upcoming days. MD RODRIGUEZ Dave/TAMARA /7:40 PM /7:53 PM
[2016-06-09] MEDS: PANTOPRAZOLE SODIUM 40 MG VIAL IV PUSH SCH (20:37)
[2016-06-09] MEDS: ZOLPIDEM TARTRATE 10 MG TAB PO PRN (21:53)
[2016-06-10] VITALS: BP 175/91; PULSE 90; RESP 20; TEMP 98; O2SAT 96
[2016-06-10] MEDS: hydrALAZINE HCL 20 MG/ML VIAL IV PUSH PRN (00:29)
[2016-06-10] MEDS: HYDROmorphone HCL PF 1 MG/ML VIAL IV PUSH PRN ×6 (00:29→23:30)
[2016-06-10] MEDS: 1/2 NS + KCL 20 MEQ INJ 1,000 ML IV SCH ×3 (00:32→23:34)
[2016-06-10 04:00] VITALS: BP 150/82; PULSE 84; RESP 20; TEMP 98.3; O2SAT 96
[2016-06-10] MEDS: INSULIN ASPART SUPPLEMENTAL SCALE SQ SCH ×4 (05:58→20:43)
[2016-06-10 08:00] VITALS: BP 179/86; PULSE 86; PULSE 87; PULSE 88; RESP 18; TEMP 97.4; O2SAT 97
[2016-06-10] MEDS: LISINOPRIL 10 MG TAB PO SCH (08:16)
[2016-06-10] MEDS: ASPIRIN EC 81 MG TABEC PO SCH (08:16)
[2016-06-10] MEDS: LIPASE/PROTEASE/AMYLASE (24,000/76,000/120,000) CAP PO SCH ×4 (08:16→20:43)
[2016-06-10] MEDS: DILTIAZEM-CD 180 MG CAP ER PO SCH (08:16)
[2016-06-10] MEDS: POTASSIUM CHLORIDE 20 MEQ CONTROLLED RELEASE TAB PO SCH (08:16)
[2016-06-10] MEDS: METOPROLOL TARTRATE 100 MG TAB PO SCH ×2 (08:16→20:43)
[2016-06-10] MEDS: ONDANSETRON HCL 4 MG/2 ML VIAL IVP PRN ×2 (08:17→23:30)
[2016-06-10] MEDS: SODIUM CHLORIDE 0.9% FLUSH 5 ML FLUSH FLUSH SCH ×2 (09:00→20:47)
--- NOTE | 2016-06-10 11:59 | EKG ---
Date Performed: 06/09/2016 Time Performed: 13:12:41 PTAGE: 71 years EKG: sinus tachycardia LEFT VENTRICULAR HYPERTROPHY AND ST-T CHANGE ABNORMAL ECG PREVIOUS TRACING : 12/24/2015 12.14 DOCTOR: Carlos Kowalski Interpretating Date/Time 06/10/2016 11:58:34
[2016-06-10 12:00] VITALS: BP 157/88; PULSE 77; RESP 18; TEMP 97.9; O2SAT 97
--- NOTE | 2016-06-10 14:12 | HHI.GIFU ---
Subjective Remarks Resting in bed. Attempted to eat a sandwich yesterday, but had difficulty swallowing and brought it back up. He does okay with clears and states that he was able to get his pills down today. He feels like his esophagus is raw, but denies actual pain with swallowing. (Lucille Cavazos) Objective Vitals I&O Vital Signs Date Time Temp Pulse Resp B/P Pulse Ox O2 Delivery O2 Flow Rate FiO2 06/10/16 12:00 97.9 77 18 157/88 97 06/10/16 08:00 97.4 88 18 179/86 97 Manual Cuff/Auscultation 06/10/16 04:00 98.3 84 20 150/82 96 06/10/16 00:00 98.0 90 20 175/91 96 06/09/16 20:00 98.4 112 20 173/79 97 06/09/16 15:00 98.2 91 20 178/89 96 06/09/16 14:18 90 16 176/86 97 06/09/16 14:13 90 16 175/88 97 06/09/16 14:08 98.5 101 16 179/84 98 I/O 06/09/16 06/09/16 06/09/16 06/10/16 06/10/16 06/10/16 07:00 15:00 23:00 07:00 15:00 23:00 Intake Total 550 ml 220 ml 1229 ml Output Total 200 ml Balance -200 ml 550 ml 220 ml 1229 ml Intake Oral 220 ml IV Total 550 ml 1229 ml Output Urine Total 200 ml # Voids 2 2 # Bowel Movements 1 Imaging Last Impressions Chest X-Ray 06/08/16 1451 Signed Impressions: Service Date/Time: Wednesday, June 08, 2016 15:11 - CONCLUSION: No evidence of acute cardiopulmonary disease. Gustavo Thomason MD Physical Exam HEENT: Normocephalic; atraumatic; no jaundice. CHEST: CTA CARDIAC: RRR ABDOMEN: Soft, nondistended, nontender; no hepatosplenomegaly; bowel sounds are present in all four quadrants. EXTREMITIES: No clubbing, cyanosis, or edema. SKIN: Normal; no rash; no jaundice. TUBE CARRIER: No focal deficits; alert and oriented times three. (Lucille Cavazos) Assessment and Plan Plan ASSESSMENT: - Dysphagia. S/P EGD (06/09/16)-----> esophagitis with distal esophageal stricture, s/p dilation 17 mm, patient has metal stent in the second portion of the duodenum, retroflexed views revealed no abnormalities, retroflexed views revealed stomach was full of fluid. PPI. Pt still had difficulty with solids yesterday and was unable to tolerate sandwich. Is taking fluids and was able to get his pills down today. ST following, he tolerated liquids without any overt s/symptoms of aspiration or difficulty, patient stated he felt like he was filling up after taking meds crushed in apple sauce, 2 tsp of sherbert, and a few sips of ensure. No coughing or choking noted, swallowing difficulties appear to be more GI related. Recommended liquids. PLAN: - Full liquids - Add ensure to each tray - Change protonix to 40mg IV BID - Add Carafate 1 gram ACHS - Supportive care - Further recommendations to follow based on results of above - Pt seen and examined by Dr. Thomason and myself and this note is written on his behalf will start PPI, and soft diet. (Lucille Cavazos) Physician Comments Patient was seen and examined, agree with above note and plan, we will sign off. (Elizabeth Thomason MD) Lucille Cavazos Jun 10, 2016 14:12 Elizabeth Thomason MD Jun 10, 2016 20:47
--- NOTE | 2016-06-10 15:48 | HHI.PR ---
Subjective Remarks Pt still having issues with dysphagia mostly to solids He was able to tolerate his pills this morning and some liquids Objective Vitals Vital Signs Date Time Temp Pulse Resp B/P Pulse Ox O2 Delivery O2 Flow Rate FiO2 06/10/16 12:00 97.9 77 18 157/88 97 06/10/16 08:00 97.4 88 18 179/86 97 Manual Cuff/Auscultation 06/10/16 04:00 98.3 84 20 150/82 96 06/10/16 00:00 98.0 90 20 175/91 96 06/09/16 20:00 98.4 112 20 173/79 97 06/09/16 06/09/16 06/10/16 15:00 23:00 07:00 Intake Total 550 ml 220 ml 1229 ml Balance 550 ml 220 ml 1229 ml Intake Oral 220 ml IV Total 550 ml 1229 ml # Voids 2 # Bowel Movements 1 Result Diagram: 06/09/16 0520 06/09/16 0520 Other Results Laboratory Tests Test 06/08/16 06/09/16 16:30 05:20 Urine Collection Type Urine Color YELLOW Urine Turbidity CLEAR Urine pH 6.0 Urine Specific [place] 1.025 Urine Protein TRACE mg/dL Urine Glucose (UA) NEG mg/dL Urine Ketones 80 OR GREATER mg/dL Urine Occult Blood NEG Urine Nitrite NEG Urine Bilirubin NEG Urine Leukocyte Esterase NEG Urine WBC 0-2 /hpf Urine Squamous Epithelial 0-2 /hpf Cells Urine Mucus FEW /lpf Microscopic Urinalysis Comment CULT NOT INDICATED White Blood Count 5.3 TH/MM3 Red Blood Count 3.44 MIL/MM3 Hemoglobin 9.2 GM/DL Hematocrit 27.9 % Mean Corpuscular Volume 81.1 FL Mean Corpuscular Hemoglobin 26.8 PG Mean Corpuscular Hemoglobin 33.0 % Concent Red Cell Distribution Width 16.1 % Platelet Count 215 TH/MM3 Mean Platelet Volume 7.3 FL Neutrophils (%) (Auto) 61.5 % Lymphocytes (%) (Auto) 24.1 % Monocytes (%) (Auto) 6.8 % Eosinophils (%) (Auto) 6.6 % Basophils (%) (Auto) 1.0 % Neutrophils # (Auto) 3.3 TH/MM3 Lymphocytes # (Auto) 1.3 TH/MM3 Monocytes # (Auto) 0.4 TH/MM3 Eosinophils # (Auto) 0.3 TH/MM3 Basophils # (Auto) 0.1 TH/MM3 CBC Comment DIFF FINAL Differential Comment Sodium Level 139 MEQ/L Potassium Level 3.6 MEQ/L Chloride Level 105 MEQ/L Carbon Dioxide Level 22.1 MEQ/L Anion Gap 12 MEQ/L Blood Urea Nitrogen 16 MG/DL Creatinine 0.59 MG/DL Estimat Glomerular Filtration 135 ML/MIN Rate Random Glucose 88 MG/DL Calcium Level 8.9 MG/DL Total Bilirubin 0.4 MG/DL Aspartate Amino Transf 24 U/L (AST/SGOT) Alanine Aminotransferase 33 U/L (ALT/SGPT) Alkaline Phosphatase 149 U/L Total Protein 6.2 GM/DL Albumin 2.9 GM/DL Imaging Last Impressions Chest X-Ray 06/08/16 1451 Signed Impressions: Service Date/Time: Wednesday, June 08, 2016 15:11 - CONCLUSION: No evidence of acute cardiopulmonary disease. Gustavo Thomason MD Objective Remarks General: NAD, AAOx3 Chest: CTA Cardiac: Regular Abd: +BS, soft ND/NT Ext: No edema A/P Problem List: (1) Odynophagia Status: Acute Plan: - GI following. - Pt underwent EGD (06/09/16)--> esophagitis with distal esophageal stricture, s/ p dilation 17 mm, patient has metal stent in the second portion of the duodenum, retroflexed views revealed no abnormalities, retroflexed views revealed stomach was full of fluid. - Pt having difficulty tolerating solids. - Is taking fluids and was able to get his pills down today. - ST following, he tolerated liquids without any overt s/symptoms of aspiration - Cont. liquids as tolerated - PPI changed to 40mg IV BID today - Carafate 1gram TIDAC added today - Barium swallow - DVT prophylaxis (2) Dehydration Status: Acute Plan: - improved - continue IV fluid (3) HTN (hypertension) Status: Acute Plan: - Pt was unable to tolerate PO antihypertensives yesterday and was started on Catapres transdermal 0.3mg - Pt now on Diltazem 180mg daily, Lisinopril 10mg daily, and Metoprolol 100mg BID - prn Vasotec - prn hydralazine (4) Pancreatic cancer Status: Chronic Plan: - clinical stage IB, T2N0M0 - adenocarcinoma, by FNA of pancreatic head mass - undergoing chemotherapy per Dr. Amaya, next chemo due 06/23 - pt underwent ERCP and stent at [facility] 12/20/15 - CT/PET 12/27/15 No distant site metastic disease. T= 3.5x4.9cm pancreatic head mass - await Oncology consultation (5) DM2 (diabetes mellitus, type 2) Status: Acute Plan: - SSI (6) Anxiety Status: Acute Plan: - ativan prn (7) CKD (chronic kidney disease) stage 3, GFR 30-59 ml/min Status: Acute Plan: - observe Assessment and Plan Patient examined. Assessment and plan formulated with Darlene Mccabe PA-C. I agree with the above. Problem Qualifiers (1) HTN (hypertension): Qualified Code: I10 - Essential hypertension (2) Pancreatic cancer: Qualified Code: C25.9 - Malignant neoplasm of pancreas, unspecified location of malignancy (3) DM2 (diabetes mellitus, type 2): Qualified Code: E11.8 - Type 2 diabetes mellitus with complication, with long- term current use of insulin Darlene Mccabe Jun 10, 2016 15:48 Billy Bright DO Jun 12, 2016 15:42
[2016-06-10 16:00] VITALS: BP 169/88; PULSE 87; RESP 16; TEMP 97.8; O2SAT 97
[2016-06-10] MEDS: SUCRALFATE 1 GM/10 ML CUP PO SCH ×2 (17:48→20:42)
--- NOTE | 2016-06-10 17:49 | RADRPT ---
EXAM DATE/TIME: 06/10/2016 16:42 [facility] COMPARISON: No previous studies available for comparison. INDICATIONS : Dysphagia. FLUORO TIME: 0.8 minutes IMAGE COUNT: 9 CONTRAST: 1. Liquid E-Z Paque Barium Sulfate (60% w/v, 41% w.w) MEDICAL HISTORY : Carcinoma, pancreas. Hypertension. Diabetes mellitus type II. SURGICAL HISTORY : None. ENCOUNTER: Initial ACUITY: 2 days PAIN SCORE: 5/10 LOCATION: esophagus FINDINGS: Patient reportedly had esophageal dilatation performed yesterday. There is a moderate esophageal talia lity disorder with poor peristalsis. There is no evidence for esophageal rupture. No discrete tear or significant luminal narrowing is identified. CONCLUSION: 1. Moderate esophageal motility disorder. No esophageal rupture identified. No significant stricture is seen. Incidental biliary stent noted in upper abdomen. Toy Adame MD on June 10, 2016 at 17:46 Board Certified Radiologist. This report was verified electronically.
--- NOTE | 2016-06-10 18:17 | PD.ONC.PN ---
Subjective Subjective Remarks Pt disimpacted himself, able to finally move bowel. Pain controlled. Not so sleepy on 1/2mg Dilaudid. Last Fentanyl patch was put on Wednesday. Objective Data Date Time Temp Pulse Resp B/P Pulse Ox O2 Delivery O2 Flow Rate FiO2 06/10/16 16:00 97.8 87 16 169/88 97 06/10/16 12:00 97.9 77 18 157/88 97 06/10/16 08:47 20 06/10/16 08:00 97.4 88 18 179/86 97 Manual Cuff/Auscultation 06/10/16 04:00 98.3 84 20 150/82 96 06/10/16 00:00 98.0 90 20 175/91 96 06/09/16 20:00 98.4 112 20 173/79 97 06/10/16 06/10/16 06/10/16 07:00 15:00 23:00 Intake Total 1229 ml 0 ml Balance 1229 ml 0 ml Result Diagram: 06/09/16 0520 06/09/1620 Administered Medications Medications (Trade) Dose Ordered Sig/Eulalia Route PRN Reason Start Time Stop Time Status Last Admin Dose Admin Aspirin (Ecotrin Ec) 81 mg DAILY PO 06/09/16 09:00 06/10/16 08:16 Diltiazem HCl (Cardizem Cd) 180 mg DAILY PO 06/09/16 09:00 06/10/16 08:16 Lisinopril (Prinivil) 10 mg DAILY PO 06/09/16 09:00 06/10/16 08:16 Metoprolol Tartrate (Lopressor) 100 mg BID PO 06/08/16 21:00 06/10/16 08:16 Amylase/Lipase/ Protease (Creon 24-76-120) 1 cap QID PO 06/08/16 18:00 06/10/16 17:48 Potassium Chloride (KCl) 20 meq DAILY PO 06/09/16 09:00 06/10/16 08:16 Zolpidem Tartrate (Ambien) 10 mg HS PRN PO INSOMNIA 06/08/16 21:00 06/09/16 21:53 IV Flush (NS Flush) 2 ml BID FLUSH 06/08/16 21:00 06/10/16 09:00 Ondansetron HCl (Zofran Inj) 4 mg Q6H PRN IVP NAUSEA OR VOMITING 06/08/16 17:15 06/10/16 08:17 Enalaprilat 1.25 mg 1.25 mg Q6H PRN IV PUSH SBP> OR = 180, DBP> OR = 100 06/08/16 17:30 06/09/16 06:14 Potassium Chloride/Sodium Chloride (06/08 NS + KCl 20 Meq Inj) 1,000 ml @ 84 mls/hr [id number] IV 06/08/16 18:30 06/10/16 12:02 Hydralazine HCl (Apresoline Inj) 10 mg Q4H PRN IV PUSH sbp above 160 06/09/16 14:00 06/10/16 00:29 Clonidine (Catapres-Tts 0.3 Mg Patch.7d) 1 patch Q7D TD 06/09/16 12:00 06/09/16 12:09 Hydromorphone HCl (Dilaudid Pf Inj) 0.5 mg Q2H PRN IV PUSH PAIN SCALE 3 TO 10 06/09/16 20:00 06/10/16 17:46 Sucralfate (Carafate Liq) 1 gm ACHS PO 06/10/16 16:00 06/10/16 17:48 Objective Remarks GENERAL: Thin, unshaven, well-developed patient. SKIN: Warm and dry. HEAD: Normocephalic. EYES: No scleral icterus. No injection or drainage. NECK: Supple, trachea midline. No JVD or lymphadenopathy. LYMPHATIC: No adenopathy. CARDIOVASCULAR: Regular rate and rhythm without murmurs. RESPIRATORY: Breath sounds equal bilaterally. No accessory muscle use. GASTROINTESTINAL: Abdomen soft, non-tender, nondistended. EXTREMITIES: No cyanosis, or edema. MUSCULOSKELETAL: Adequate muscle tone. NEUROLOGICAL: No obvious focal deficit. Awake, alert, and oriented x3. PSYCHIATRIC: Depressed mood about this prognosis. Assessment/Plan Problem List: (1) Pancreatic cancer Status: Chronic Plan: Metastatic pancreatic cancer. Response to FOLFIRINOX perioperatively, Whipple aborted due to findings of metastatic lesions on liver capsule. Pt restarted palliative chemo developed complications, dysphagia, early satiety , constipation, fullness, anorexia. Many symptoms were present prior - but worsened and culminated to require admission to hospital. Noted no aspiration. Barium swallow pending results. Discussed at length goal of evaluation, evaluate for reversible cause of symptoms. Differential include chemo related toxicity, pain medication related toxicity or progression of pancreas cancer. Agree to see hospice during hospitalization for information gathering. Decided to cancel appt at [facility] for MRI. Discussed prognosis of pancreas cancer in general and goal of palliative chemotherapy. Assessment 71 y/o man with metastatic pancreatic cancer with dysphagia, constipation and fullness. GI evaluation on going. Plan 1. Hospice consult for information gathering. 2. Trial Movantik pending obstruction excluded. 3. Continue bowel regimen. 4. FU BONNIE when DC to discuss further treatment options. 5. Change Fentanyl patch. Problem Qualifiers (1) Pancreatic cancer: Qualified Code: C25.9 - Malignant neoplasm of pancreas, unspecified location of malignancy Pia Amaya MD Jun 10, 2016 18:17
[2016-06-10 20:00] VITALS: BP 167/83; PULSE 82; PULSE 84; RESP 16; TEMP 98.1; O2SAT 97
[2016-06-10] MEDS ORDERED: fentaNYL 25 MCG/HR PATCH TD SCH (20:00)
[2016-06-10] MEDS: DOCUSATE SODIUM 100 MG/10 ML UDC PO SCH (20:43)
[2016-06-10] MEDS: PANTOPRAZOLE SODIUM 40 MG VIAL IV PUSH SCH (20:48)
[2016-06-11] VITALS (7 sets, daily range): BP systolic 142–173; BP diastolic 68–83; PULSE 62–77; RESP 17–20; TEMP 97.6–98.7; O2SAT 93–97
[2016-06-11] MEDS: SODIUM CHLORIDE 0.9% FLUSH 5 ML FLUSH FLUSH PRN ×3 (02:04→23:40)
[2016-06-11] MEDS: HYDROmorphone HCL PF 1 MG/ML VIAL IV PUSH PRN ×8 (02:04→23:40)
[2016-06-11] MEDS: ONDANSETRON HCL 4 MG/2 ML VIAL IVP PRN (05:48)
[2016-06-11] MEDS: SUCRALFATE 1 GM/10 ML CUP PO SCH ×4 (05:48→21:01)
[2016-06-11] MEDS: INSULIN ASPART SUPPLEMENTAL SCALE SQ SCH ×4 (05:50→21:25)
[2016-06-11] MEDS: DILTIAZEM-CD 180 MG CAP ER PO SCH (08:42)
[2016-06-11] MEDS: POTASSIUM CHLORIDE 20 MEQ CONTROLLED RELEASE TAB PO SCH (08:42)
[2016-06-11] MEDS: DOCUSATE SODIUM 100 MG/10 ML UDC PO SCH ×2 (08:43→21:01)
[2016-06-11] MEDS: METOPROLOL TARTRATE 100 MG TAB PO SCH ×2 (08:43→21:02)
[2016-06-11] MEDS: ASPIRIN EC 81 MG TABEC PO SCH (08:43)
[2016-06-11] MEDS: PANTOPRAZOLE SODIUM 40 MG VIAL IV PUSH SCH ×2 (08:43→21:01)
[2016-06-11] MEDS: LISINOPRIL 10 MG TAB PO SCH (08:43)
[2016-06-11] MEDS: LIPASE/PROTEASE/AMYLASE (24,000/76,000/120,000) CAP PO SCH ×4 (08:43→21:01)
[2016-06-11] MEDS: SODIUM CHLORIDE 0.9% FLUSH 5 ML FLUSH FLUSH SCH ×2 (08:44→21:00)
--- NOTE | 2016-06-11 11:52 | PD.ONC.PN ---
Subjective Subjective Remarks Afebrile overnight. Patient continuing to tolerate liquid diet. He had oatmeal this AM without difficulty. He is having trouble sleeping due to frequent interruptions. at bedside is still waiting to talk with hospice. She is hoping they will be able to provide palliative care to the patient but also wants him to continue receiving chemotherapy. Objective Data Date Time Temp Pulse Resp B/P Pulse Ox O2 Delivery O2 Flow Rate FiO2 06/11/16 08:00 98.6 77 18 164/78 95 06/11/16 07:53 74 06/11/16 03:00 98.2 72 18 154/81 93 06/11/16 00:00 98.7 74 17 173/83 95 06/10/16 20:00 98.1 84 16 167/83 97 06/10/16 20:00 82 06/10/16 18:16 20 06/10/16 16:00 97.8 87 16 169/88 97 06/10/16 12:00 97.9 77 18 157/88 97 06/11/16 06/11/16 06/11/16 07:00 15:00 23:00 Intake Total 720 ml Balance 720 ml Result Diagram: 06/09/1651906/09/16 0520 Administered Medications Medications (Trade) Dose Ordered Sig/Eulalia Route PRN Reason Start Time Stop Time Status Last Admin Dose Admin Aspirin (Ecotrin Ec) 81 mg DAILY PO 06/09/16 09:00 06/11/16 08:43 Diltiazem HCl (Cardizem Cd) 180 mg DAILY PO 06/09/16 09:00 06/11/16 08:42 Lisinopril (Prinivil) 10 mg DAILY PO 06/09/16 09:00 06/11/16 08:43 Metoprolol Tartrate (Lopressor) 100 mg BID PO 06/08/16 21:00 06/11/16 08:43 Amylase/Lipase/ Protease (Creon 24-76-120) 1 cap QID PO 06/08/16 18:00 06/11/16 08:43 Potassium Chloride (KCl) 20 meq DAILY PO 06/09/16 09:00 06/11/16 08:42 Zolpidem Tartrate (Ambien) 10 mg HS PRN PO INSOMNIA 06/08/16 21:00 06/09/16 21:53 IV Flush (NS Flush) 2 ml UNSCH PRN FLUSH FLUSH AFTER USING IV ACCESS 06/08/16 17:15 06/11/16 07:08 IV Flush (NS Flush) 2 ml BID FLUSH 06/08/16 21:00 06/11/16 08:44 Ondansetron HCl (Zofran Inj) 4 mg Q6H PRN IVP NAUSEA OR VOMITING 06/08/16 17:15 06/11/16 05:48 Enalaprilat 1.25 mg 1.25 mg Q6H PRN IV PUSH SBP> OR = 180, DBP> OR = 100 06/08/16 17:30 06/09/16 06:14 Potassium Chloride/Sodium Chloride (06/08 NS + KCl 20 Meq Inj) 1,000 ml @ 84 mls/hr [id number] IV 06/08/16 18:30 06/10/16 23:34 Hydralazine HCl (Apresoline Inj) 10 mg Q4H PRN IV PUSH sbp above 160 06/09/16 14:00 06/10/16 00:29 Clonidine (Catapres-Tts 0.3 Mg Patch.7d) 1 patch Q7D TD 06/09/16 12:00 06/09/16 12:09 Hydromorphone HCl (Dilaudid Pf Inj) 0.5 mg Q2H PRN IV PUSH PAIN SCALE 3 TO 10 06/09/16 20:00 06/11/16 10:15 Pantoprazole Sodium (Protonix Inj) 40 mg BID IV PUSH 06/10/16 21:00 06/11/16 08:43 Sucralfate (Carafate Liq) 1 gm ACHS PO 06/10/16 16:00 06/11/16 05:48 Docusate Sodium (Colace Liq) 100 mg Q12HR PO 06/10/16 21:00 06/11/16 08:43 Fentanyl (Duragesic 25 Mcg Patch.72 Hr) 1 patch Q3D TD 06/10/16 20:00 06/10/16 20:47 Objective Remarks GENERAL: Malnourished weak appearing male, lying in bed, He is sleeping on approach but awakens to the sound of my voice. SKIN: Warm and dry. HEAD: Normocephalic. EYES: No scleral icterus. No injection or drainage. NECK: Supple, trachea midline. CARDIOVASCULAR: Regular rate and rhythm RESPIRATORY: Breath sounds equal bilaterally. No accessory muscle use. GASTROINTESTINAL: Abdomen soft, non-tender, nondistended. EXTREMITIES: No cyanosis NEUROLOGICAL: awake and alert, appropriate. able to move extremities. Assessment/Plan Problem List: (1) Pancreatic cancer Status: Chronic Plan: 06/11/16: Barium swallow showed moderate esophageal motility disorder and poor peristalsis. discussed results of barium swallow. discussed continuing to trial liquid diet. I d/w GI--if patient continues to have dysphagia they suggest he may require botox injections for esophageal spasms. Patient reports he is tolerating a liquid diet today. will continue to monitor. Patient's reports she would like someone to help with patient's care at home and was hoping hospice would be able to help. Patient/ would like to continue chemotherapy. d/w patient and that patient will not likely be able to be enrolled in hospice while receiving chemotherapy, but will await hospice consult. Metastatic pancreatic cancer. Response to FOLFIRINOX perioperatively, Whipple aborted due to findings of metastatic lesions on liver capsule. Pt restarted palliative chemo developed complications, dysphagia, early satiety , constipation, fullness, anorexia. Many symptoms were present prior - but worsened and culminated to require admission to hospital. Assessment 71 y/o man with metastatic pancreatic cancer with dysphagia, constipation and fullness. GI evaluation on going. Plan 1. await hospice consult 2. continue stool softener 3. liquid diet. 4. plan f/u at clinic once d/c Attending Statement The exam, history, and the medical decision-making described in the above note were completed with the assistance of the mid-level provider. I reviewed and agree with the findings presented. I attest that I had a [id number] encounter with the patient on the same day, and personally performed and documented my assessment and findings in the medical record. Pt seen and examined, able to eat breakfast, stomach better. Continue monitor. Problem Qualifiers (1) Pancreatic cancer: Qualified Code: C25.9 - Malignant neoplasm of pancreas, unspecified location of malignancy Lois Olson Jun 11, 2016 11:52 Pia Amaya MD Jun 11, 2016 18:35
--- NOTE | 2016-06-11 15:27 | HHI.PR ---
Subjective Remarks tolerating liquids Objective Vitals Vital Signs Date Time Temp Pulse Resp B/P Pulse Ox O2 Delivery O2 Flow Rate FiO2 06/11/16 12:00 98.3 62 20 143/72 97 06/11/16 08:00 98.6 77 18 164/78 95 06/11/16 07:53 74 06/11/16 03:00 98.2 72 18 154/81 93 06/11/16 00:00 98.7 74 17 173/83 95 06/10/16 20:00 98.1 84 16 167/83 97 06/10/16 20:00 82 06/10/16 18:16 20 06/10/16 16:00 97.8 87 16 169/88 97 06/10/16 06/10/16 06/11/16 14:59 22:59 06:59 Intake Total 0 ml 641 ml 720 ml Balance 0 ml 641 ml 720 ml Intake Oral 0 ml 240 ml 120 ml IV Total 401 ml 600 ml # Voids 4 2 1 # Bowel Movements 1 Result Diagram: 06/09/16 0520 06/09/16 0520 Imaging Last Impressions Barium Swallow X-Ray 06/10/16 0000 Signed Impressions: Service Date/Time: Friday, June 10, 2016 16:42 - CONCLUSION: 1. Moderate esophageal motility disorder. No esophageal rupture identified. No significant stricture is seen. Incidental biliary stent noted in upper abdomen. Toy Adame MD Chest X-Ray 06/08/16 1451 Signed Impressions: Service Date/Time: Wednesday, June 08, 2016 15:11 - CONCLUSION: No evidence of acute cardiopulmonary disease. Gustavo Thomason MD Objective Remarks General: NAD, AAOx3 Chest: CTA Cardiac: Regular Abd: +BS, soft ND/NT Ext: No edema A/P Problem List: (1) Odynophagia Status: Acute Plan: - GI following. - Pt underwent EGD (06/09/16)--> esophagitis with distal esophageal stricture, s/ p dilation 17 mm, patient has metal stent in the second portion of the duodenum, retroflexed views revealed no abnormalities, retroflexed views revealed stomach was full of fluid. - Pt having difficulty tolerating solids. - Pt is tolerating liquids and taking his pills. - ST following, he tolerated liquids without any overt s/symptoms of aspiration - Cont. liquids as tolerated - PPI changed to 40mg IV BID on 06/10/16 - Carafate 1gram TIDAC added on 06/10/16 - Barium swallow (06/10/16)--> Moderate esophageal motility disorder. No esophageal rupture identified. No significant stricture is seen. Incidental biliary stent noted in upper abdomen. - GI considering repeat EGD with Botox if any no improvement in dysphagia - DVT prophylaxis (2) Dehydration Status: Acute Plan: - improved - continue IV fluid (3) HTN (hypertension) Status: Acute Plan: - Pt was unable to tolerate PO antihypertensives on 06/09 and was started on Catapres transdermal 0.3mg - Pt now on Diltazem 180mg daily, Lisinopril 10mg daily, and Metoprolol 100mg BID - BP still fluctuating - prn Vasotec - prn hydralazine (4) Pancreatic cancer Status: Chronic Plan: - clinical stage IB, T2N0M0 - adenocarcinoma, by FNA of pancreatic head mass - undergoing chemotherapy per Dr. Amaya, next chemo due 06/23 - pt underwent ERCP and stent at [facility] 12/20/15 - CT/PET 12/27/15 No distant site metastatic disease. T= 3.5x4.9cm pancreatic head mass - Appreciate Oncology consultation - Hospice has been consulted for information gathering. - Pt and want more help at home but do not want to stop Chemo at this point. (5) DM2 (diabetes mellitus, type 2) Status: Acute Plan: - SSI (6) Anxiety Status: Acute Plan: - ativan prn (7) CKD (chronic kidney disease) stage 3, GFR 30-59 ml/min Status: Acute Plan: - observe Assessment and Plan Patient examined. Assessment and plan formulated with Darlene Mccabe PA-C. I agree with the above. Problem Qualifiers (1) HTN (hypertension): Qualified Code: I10 - Essential hypertension (2) Pancreatic cancer: Qualified Code: C25.9 - Malignant neoplasm of pancreas, unspecified location of malignancy (3) DM2 (diabetes mellitus, type 2): Qualified Code: E11.8 - Type 2 diabetes mellitus with complication, with long- term current use of insulin Darlene Mccabe Jun 11, 2016 15:27 Billy Bright DO Jun 12, 2016 15:43
[2016-06-11] MEDS: 1/2 NS + KCL 20 MEQ INJ 1,000 ML IV SCH (18:00)
[2016-06-11] MEDS: ZOLPIDEM TARTRATE 10 MG TAB PO PRN (21:21)
[2016-06-12] VITALS (8 sets, daily range): BP systolic 142–182; BP diastolic 70–95; PULSE 63–95; RESP 16–20; TEMP 97.7–99; O2SAT 95–97
[2016-06-12] MEDS: ENALAPRILAT 1.25 MG/ML VIAL IV PUSH PRN ×2 (04:38→12:24)
[2016-06-12] MEDS: HYDROmorphone HCL PF 1 MG/ML VIAL IV PUSH PRN ×8 (04:39→23:30)
[2016-06-12] MEDS: SODIUM CHLORIDE 0.9% FLUSH 5 ML FLUSH FLUSH PRN (04:39)
[2016-06-12] MEDS: 1/2 NS + KCL 20 MEQ INJ 1,000 ML IV SCH (05:14)
[2016-06-12] MEDS: SUCRALFATE 1 GM/10 ML CUP PO SCH ×4 (06:53→21:04)
[2016-06-12] MEDS: INSULIN ASPART SUPPLEMENTAL SCALE SQ SCH ×4 (06:53→21:07)
--- NOTE | 2016-06-12 08:26 | PD.ONC.PN ---
Subjective Subjective Remarks Afebrile overnight. Patient resting comfortably. He just received his breakfast --eggs and is about to eat it. He states he ate mashed potatoes for dinner last night without difficulty. He had BM last night, as well. He is eager to go home when possible. Objective Data Date Time Temp Pulse Resp B/P Pulse Ox O2 Delivery O2 Flow Rate FiO2 06/12/16 05:10 142/76 06/12/16 04:00 99.0 76 17 177/84 95 06/12/16 04:00 Room Air 06/12/16 00:00 Room Air 06/12/16 00:00 98.3 63 18 146/70 96 06/11/16 20:00 97.9 72 17 142/68 96 06/11/16 20:00 66 06/11/16 20:00 Room Air 06/11/16 16:00 97.6 64 18 153/72 96 06/11/16 12:00 98.3 62 20 143/72 97 06/12/16 06/12/16 06/12/16 07:00 15:00 23:00 Intake Total 240 ml Balance 240 ml Result Diagram: 06/09/16 0520 06/09/16 0520 Administered Medications Medications (Trade) Dose Ordered Sig/Eulalia Route PRN Reason Start Time Stop Time Status Last Admin Dose Admin Aspirin (Ecotrin Ec) 81 mg DAILY PO 06/09/16 09:00 06/11/16 08:43 Diltiazem HCl (Cardizem Cd) 180 mg DAILY PO 06/09/16 09:00 06/11/16 08:42 Lisinopril (Prinivil) 10 mg DAILY PO 06/09/16 09:00 06/11/16 08:43 Metoprolol Tartrate (Lopressor) 100 mg BID PO 06/08/16 21:00 06/11/16 21:02 Amylase/Lipase/ Protease (Creon 24-76-120) 1 cap QID PO 06/08/16 18:00 06/11/16 21:01 Potassium Chloride (KCl) 20 meq DAILY PO 06/09/16 09:00 06/11/16 08:42 Zolpidem Tartrate (Ambien) 10 mg HS PRN PO INSOMNIA 06/08/16 21:00 06/11/16 21:21 IV Flush (NS Flush) 2 ml UNSCH PRN FLUSH FLUSH AFTER USING IV ACCESS 06/08/16 17:15 06/12/16 04:39 IV Flush (NS Flush) 2 ml BID FLUSH 06/08/16 21:00 06/11/16 08:44 Ondansetron HCl (Zofran Inj) 4 mg Q6H PRN IVP NAUSEA OR VOMITING 06/08/16 17:15 06/11/16 05:48 Enalaprilat 1.25 mg 1.25 mg Q6H PRN IV PUSH SBP> OR = 180, DBP> OR = 100 06/08/16 17:30 06/12/16 04:38 Potassium Chloride/Sodium Chloride (06/08 NS + KCl 20 Meq Inj) 1,000 ml @ 84 mls/hr [id number] IV 06/08/16 18:30 06/10/16 23:34 Hydralazine HCl (Apresoline Inj) 10 mg Q4H PRN IV PUSH sbp above 160 06/09/16 14:00 06/10/16 00:29 Clonidine (Catapres-Tts 0.3 Mg Patch.7d) 1 patch Q7D TD 06/09/16 12:00 06/09/16 12:09 Hydromorphone HCl (Dilaudid Pf Inj) 0.5 mg Q2H PRN IV PUSH PAIN SCALE 3 TO 10 06/09/16 20:00 06/12/16 04:39 Pantoprazole Sodium (Protonix Inj) 40 mg BID IV PUSH 06/10/16 21:00 06/11/16 21:01 Sucralfate (Carafate Liq) 1 gm ACHS PO 06/10/16 16:00 06/12/16 06:53 Docusate Sodium (Colace Liq) 100 mg Q12HR PO 06/10/16 21:00 06/11/16 21:01 Fentanyl (Duragesic 25 Mcg Patch.72 Hr) 1 patch Q3D TD 06/10/16 20:00 06/10/16 20:47 Objective Remarks GENERAL: Elderly male, appears stronger today, walking around room in nad. SKIN: Warm and dry. HEAD: Normocephalic. EYES: No scleral icterus. No injection or drainage. NECK: Supple, trachea midline. CARDIOVASCULAR: Regular rate and rhythm RESPIRATORY: Breath sounds equal bilaterally. No accessory muscle use. GASTROINTESTINAL: Abdomen soft, non-tender, nondistended. EXTREMITIES: No cyanosis NEUROLOGICAL: awake and alert and oriented, normal speech. independently ambulatory Assessment/Plan Problem List: (1) Pancreatic cancer Status: Chronic Plan: 06/12/16: tolerating soft diet. having BM. Metastatic pancreatic cancer. Response to FOLFIRINOX perioperatively, Whipple aborted due to findings of metastatic lesions on liver capsule. Pt restarted palliative chemo developed complications, dysphagia, early satiety , constipation, fullness, anorexia. Many symptoms were present prior - but worsened and culminated to require admission to hospital. Assessment 71 y/o man with metastatic pancreatic cancer with dysphagia, constipation and fullness. GI evaluation on going. Plan 1. clear for d/c 2. follow up at clinic upon discharge. Attending Statement The exam, history, and the medical decision-making described in the above note were completed with the assistance of the mid-level provider. I reviewed and agree with the findings presented. I attest that I had a [id number] encounter with the patient on the same day, and personally performed and documented my assessment and findings in the medical record. Pt seen and examined. c/o pain when pain meds wear off ~ 3 hours. Eating better. Mucositis improved further way from chemo and from GI meds/ intervention. Discussed w/ Dr. Bright goal to improve BP. 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 He is interested in second line chemotherapy with Gemzar and Abraxane. We considered off labeled use of check point inhibitor- a drug they see commercials on TV for lung cancer. He'll FU next week to discuss options further. Problem Qualifiers (1) Pancreatic cancer: Qualified Code: C25.9 - Malignant neoplasm of pancreas, unspecified location of malignancy Lois Olson Jun 12, 2016 08:26 Pia Amaya MD Jun 12, 2016 20:57
[2016-06-12] MEDS: SODIUM CHLORIDE 0.9% FLUSH 5 ML FLUSH FLUSH SCH ×2 (09:38→21:08)
[2016-06-12] MEDS: DOCUSATE SODIUM 100 MG/10 ML UDC PO SCH ×2 (09:39→21:06)
[2016-06-12] MEDS: DILTIAZEM-CD 180 MG CAP ER PO SCH (09:39)
[2016-06-12] MEDS: POTASSIUM CHLORIDE 20 MEQ CONTROLLED RELEASE TAB PO SCH (09:39)
[2016-06-12] MEDS: ASPIRIN EC 81 MG TABEC PO SCH (09:39)
[2016-06-12] MEDS: LIPASE/PROTEASE/AMYLASE (24,000/76,000/120,000) CAP PO SCH ×4 (09:39→21:01)
[2016-06-12] MEDS: LISINOPRIL 10 MG TAB PO SCH (09:39)
[2016-06-12] MEDS: METOPROLOL TARTRATE 100 MG TAB PO SCH ×2 (09:39→21:01)
[2016-06-12] MEDS: PANTOPRAZOLE SODIUM 40 MG VIAL IV PUSH SCH ×2 (09:40→21:08)
--- NOTE | 2016-06-12 15:40 | HHI.PR ---
Subjective Remarks Pt tolerating PO intake. Objective Vitals Vital Signs Date Time Temp Pulse Resp B/P Pulse Ox O2 Delivery O2 Flow Rate FiO2 06/12/16 12:00 98.7 73 18 182/95 97 06/12/16 08:00 95 06/12/16 08:00 98.1 79 18 173/81 96 06/12/16 07:00 Room Air 06/12/16 07:00 Room Air 06/12/16 05:10 142/76 06/12/16 04:00 99.0 76 17 177/84 95 06/12/16 04:00 Room Air 06/12/16 00:00 Room Air 06/12/16 00:00 98.3 63 18 146/70 96 06/11/16 20:00 97.9 72 17 142/68 96 06/11/16 20:00 66 06/11/16 20:00 Room Air 06/11/16 16:00 97.6 64 18 153/72 96 06/11/16 06/11/16 06/12/16 15:00 23:00 07:00 Intake Total 840 ml 1151 ml 240 ml Balance 840 ml 1151 ml 240 ml Intake Oral 840 ml 240 ml 240 ml IV Total 911 ml # Voids 4 1 2 # Bowel Movements 0 0 0 Result Diagram: 06/09/16 0520 06/09/16 0520 Imaging Last Impressions Barium Swallow X-Ray 06/10/16 0000 Signed Impressions: Service Date/Time: Friday, June 10, 2016 16:42 - CONCLUSION: 1. Moderate esophageal motility disorder. No esophageal rupture identified. No significant stricture is seen. Incidental biliary stent noted in upper abdomen. Toy Adame MD Chest X-Ray 06/08/16 1451 Signed Impressions: Service Date/Time: Wednesday, June 08, 2016 15:11 - CONCLUSION: No evidence of acute cardiopulmonary disease. Gustavo Thomason MD Objective Remarks General: NAD, AAOx3 Chest: CTA Cardiac: Regular Abd: +BS, soft ND/NT Ext: No edema A/P Problem List: (1) Odynophagia Status: Acute Plan: - GI following. - Pt underwent EGD (06/09/16)--> esophagitis with distal esophageal stricture, s/ p dilation 17 mm, patient has metal stent in the second portion of the duodenum, retroflexed views revealed no abnormalities, retroflexed views revealed stomach was full of fluid. - Pt having difficulty tolerating solids. - Pt is tolerating liquids and taking his pills. - ST following, he tolerated liquids without any overt s/symptoms of aspiration - Cont. liquids as tolerated - PPI changed to 40mg IV BID on 06/10/16 - Carafate 1gram TIDAC added on 06/10/16 - Barium swallow (06/10/16)--> Moderate esophageal motility disorder. No esophageal rupture identified. No significant stricture is seen. Incidental biliary stent noted in upper abdomen. - Pt now tolerating solid PO intake. - DVT prophylaxis (2) HTN (hypertension) Status: Acute Plan: - Pt was unable to tolerate PO antihypertensives on 06/09 and was started on Catapres transdermal 0.3mg - Pt now on Diltazem 180mg daily --> increase to 360mg daily, Lisinopril 10mg daily, and Metoprolol 100mg BID - BP still fluctuating - prn Vasotec - prn hydralazine - if BP readings improve, then will d/c to home 06/13/15 (3) Pancreatic cancer Status: Chronic Plan: - clinical stage IB, T2N0M0 - adenocarcinoma, by FNA of pancreatic head mass - undergoing chemotherapy per Dr. Amaya, next chemo due 06/23 - pt underwent ERCP and stent at [facility] 12/20/15 - CT/PET 12/27/15 No distant site metastatic disease. T= 3.5x4.9cm pancreatic head mass - Appreciate Oncology consultation - Hospice has been consulted for information gathering. - Pt and want more help at home but do not want to stop Chemo at this point. (4) DM2 (diabetes mellitus, type 2) Status: Acute Plan: - SSI (5) Anxiety Status: Acute Plan: - ativan prn (6) CKD (chronic kidney disease) stage 3, GFR 30-59 ml/min Status: Acute Plan: - observe Problem Qualifiers (1) HTN (hypertension): Qualified Code: I10 - Essential hypertension (2) Pancreatic cancer: Qualified Code: C25.9 - Malignant neoplasm of pancreas, unspecified location of malignancy (3) DM2 (diabetes mellitus, type 2): Qualified Code: E11.8 - Type 2 diabetes mellitus with complication, with long- term current use of insulin Bright,Edward B DO Jun 12, 2016 15:40
[2016-06-12] MEDS ORDERED: DILTIAZEM-CD 180 MG CAP ER PO ONE (16:00)
[2016-06-12] MEDS: ZOLPIDEM TARTRATE 10 MG TAB PO PRN (21:16)
[2016-06-13 00:06] VITALS: BP 186/89; PULSE 80; RESP 20; TEMP 97.8; O2SAT 96
[2016-06-13] MEDS: HYDROmorphone HCL PF 1 MG/ML VIAL IV PUSH PRN ×4 (02:04→09:33)
[2016-06-13] MEDS: ENALAPRILAT 1.25 MG/ML VIAL IV PUSH PRN (02:18)
[2016-06-13 04:00] VITALS: BP 162/80; PULSE 59; RESP 16; TEMP 98.1; O2SAT 97
[2016-06-13] MEDS: INSULIN ASPART SUPPLEMENTAL SCALE SQ SCH ×2 (06:19→11:00)
[2016-06-13] MEDS: SUCRALFATE 1 GM/10 ML CUP PO SCH ×2 (07:18→11:23)
[2016-06-13 07:58] VITALS: BP 166/81; PULSE 73; RESP 18; TEMP 98.1; O2SAT 96
[2016-06-13] MEDS ORDERED: DILTIAZEM-CD 180 MG CAP ER PO SCH (09:00)
[2016-06-13] MEDS: SODIUM CHLORIDE 0.9% FLUSH 5 ML FLUSH FLUSH SCH (09:31)
[2016-06-13] MEDS: PANTOPRAZOLE SODIUM 40 MG VIAL IV PUSH SCH (09:31)
[2016-06-13] MEDS: POTASSIUM CHLORIDE 20 MEQ CONTROLLED RELEASE TAB PO SCH (09:32)
[2016-06-13] MEDS: ASPIRIN EC 81 MG TABEC PO SCH (09:32)
[2016-06-13] MEDS: DOCUSATE SODIUM 100 MG/10 ML UDC PO SCH (09:32)
[2016-06-13] MEDS: LIPASE/PROTEASE/AMYLASE (24,000/76,000/120,000) CAP PO SCH (09:32)
[2016-06-13] MEDS: METOPROLOL TARTRATE 100 MG TAB PO SCH (09:33)
[2016-06-13] MEDS: LISINOPRIL 10 MG TAB PO SCH (09:33)
[2016-06-13 10:40] VITALS: RESP 20
[2016-06-13] MEDS ORDERED: OXYC1CAP PO (11:08)
[2016-06-13] MEDS ORDERED: CLON.3T TD (11:08)
[2016-06-13] MEDS ORDERED: CARD180C5 PO (11:08)
[2016-06-13] MEDS ORDERED: SUCR1S PO (11:08)
[2016-06-13] MEDS ORDERED: FENT25T TD (11:08)
[2016-06-13] MEDS ORDERED: PROT40TA PO (11:08)
[2016-06-13] MEDS ORDERED: COLA100C3 PO (11:12)
--- NOTE | 2016-06-13 11:20 | HHI.DS ---
Discharge Summary Admission Date Jun 08, 2016 at 16:08 Discharge Date: Jun 13, 2016 Admitting Diagnosis Odynophagia, dehydration, pancreatic cancer (1) Odynophagia Diagnosis: Principal (2) HTN (hypertension) Diagnosis: Principal (3) Pancreatic cancer Diagnosis: Secondary (4) DM2 (diabetes mellitus, type 2) Diagnosis: Secondary (5) Anxiety Diagnosis: Secondary (6) CKD (chronic kidney disease) stage 3, GFR 30-59 ml/min Diagnosis: Secondary Consultants Dr. Jamee Thomason, Gastroenterolgy Dr. Pia Amaya, Oncology Procedures Pt underwent EGD (06/09/16)--> esophagitis with distal esophageal stricture, s/p dilation 17 mm, patient has metal stent in the second portion of the duodenum, retroflexed views revealed no abnormalities, retroflexed views revealed stomach was full of fluid. Brief History The patient is a 71-year-old male who presents to the emergency department for nausea, vomiting, difficulty swallowing. The patient has a history of pancreatic cancer who is currently being treated by his oncologist, Dr. Amaya. The patient last received chemotherapy last , is next scheduled to have chemotherapy on June 23. The patient was recently evaluated at [facility] [place] [facility] in [place], [place], for a second opinion in regards to his pancreatic cancer for possible evaluation of being placed into a new study. The patient also states he underwent surgery at [facility] [place] [facility] in [place], [place], for possible Whipple procedure. However, the patient was noted to have a mass on his liver and a Whipple procedure was aborted. The patient did have a stent placed into the biliary system secondary to obstruction by bottling line operator in [place], [place]. The patient's primary physician in the local areas Dr. Gonzales, his oncologist is Dr. Amaya , and his local bottling line operator is Dr. Durham. The patient notes increasing difficulty swallowing has been unable to swallow any solids since s El[place] when he had a small piece of wire. He notes increasing difficulty in swallowing liquids and secretions. Patient complains of pain and spasming of the superior esophageal area when swallowing. He also notes increasing lethargy and weakness secondary to poor oral intake. Case discussed with GI will require direct visualization esophagus. Will continue IV fluid and sliding scale insulin. CBC/BMP: 06/09/16 0520 06/09/16 0520 Imaging Last Impressions Barium Swallow X-Ray 06/10/16 0000 Signed Impressions: Service Date/Time: Friday, June 10, 2016 16:42 - CONCLUSION: 1. Moderate esophageal motility disorder. No esophageal rupture identified. No significant stricture is seen. Incidental biliary stent noted in upper abdomen. Toy Adame MD Chest X-Ray 06/08/16 1451 Signed Impressions: Service Date/Time: Wednesday, June 08, 2016 15:11 - CONCLUSION: No evidence of acute cardiopulmonary disease. Gustavo Thomason MD PE at Discharge General: NAD, AAOx3 Chest: CTA Cardiac: Regular Abd: +BS, soft ND/NT Ext: No edema Hospital Course (1) Odynophagia Status: Acute Plan: - comgmt with GI, Dr. Thomason - Pt underwent EGD (06/09/16)--> esophagitis with distal esophageal stricture, s/ p dilation 17 mm, patient has metal stent in the second portion of the duodenum, retroflexed views revealed no abnormalities, retroflexed views revealed stomach was full of fluid. - Barium swallow (06/10/16)--> Moderate esophageal motility disorder. No esophageal rupture identified. No significant stricture is seen. Incidental biliary stent noted in upper abdomen. - ST following, he tolerated liquids without any overt s/symptoms of aspiration - marked improvement by discharge. Pt tolerating solids. - continue Protonix and carafate upon discharge (2) HTN (hypertension) Status: Acute Plan: - Pt was unable to tolerate PO antihypertensives on 06/09 and was started on Catapres transdermal 0.3mg - Pt now on Diltazem 180mg daily --> increase to 360mg daily, Lisinopril 10mg daily, and Metoprolol 100mg BID - BP still fluctuating, pt improving - discharge on Catapres transdermal. I d/w [facility] pharmacy and generic is available. (3) Pancreatic cancer Status: Chronic Plan: - clinical stage IB, [id number] - adenocarcinoma, by FNA of pancreatic head mass - undergoing chemotherapy per Dr. Amaya, next chemo due 06/23 - pt underwent ERCP and stent at [facility] 12/20/15 - CT/PET 12/27/15 No distant site metastatic disease. T= 3.5x4.9cm pancreatic head mass - Appreciate Oncology consultation - Hospice has been consulted for information gathering. - Pt and want more help at home but do not want to stop Chemo at this point. - Pt started on fentanyl transdermal & I have written limited prescription to continue outpt (4) DM2 (diabetes mellitus, type 2) Status: Acute Plan: - SSI (5) Anxiety Status: Acute Plan: - ativan prn (6) CKD (chronic kidney disease) stage 3, GFR 30-59 ml/min Status: Acute Plan: - observe Pt Condition on Discharge: Stable Discharge Disposition: Discharge Home Discharge Instructions DIET: Follow Instructions for: Heart Healthy Diet, Diabetic Diet, Soft Diet Activities you can perform: Weight Bearing as Jayson Follow up Referrals: Gastroenterology - 3 Weeks with Elizabeth Thomason MD Oncology - 3-[address] Pia Amaya PCP Follow-up - [address] Pierce Gonzales New Medications: Docusate Sodium (Colace) 100 Mg Cap 100 MG PO BID Constipation #60 Ref 0 CAP Pantoprazole (Protonix) 40 Mg Tab 40 MG PO DAILY Reflux #30 Ref 0 TAB Clonidine 168 HR Patch (Bayawstw-Drv-2 168 HR Patch) 0.3 Mg/24 Hr Patch 1 PATCH TD Q7D HTN Days 30 Ref 0 PATCH Diltiazem CD 24 HR (Cardizem CD 24 HR) 180 Mg Caper 360 MG PO DAILY htn #30 Ref 0 CAP Fentanyl Patch 72 HR (Duragesic Patch 72 HR) 25 Mcg/Hr Patch 1 PATCH TD Q3D cancer pain Days 30 Ref 0 PATCH Sucralfate Liq (Sucralfate Liq) 1 Gm/10 Ml Laura 1 GM PO ACHS gerd Days 30 Ref 0 ML Continued Medications: Aspirin (Aspirin) 81 Mg Tabdr 81 MG PO DAILY TAB Atorvastatin (Atorvastatin) 20 Mg Tab 20 MG PO HS Cholesterol Management #30 Ref 0 TAB Hydrocodone-Acetaminophen (Hydrocodone-Acetaminophen) 5-325 mg Tab 1 TAB PO Q4H PRN PAIN Ref 0 TAB Lisinopril (Lisinopril) 10 Mg Tab 10 MG PO DAILY #30 Ref 0 TAB Metoprolol Tartrate (Metoprolol Tartrate) 100 Mg Tab 100 MG PO BID #60 Ref 0 TAB Mirtazapine (Mirtazapine) 15 Mg Tab Unknown Dose PO DAILY Depression Control #30 Ref 0 TAB Oxycodone (Oxycodone) 5 Mg Cap 5 MG PO Q4H PRN PAIN #20 Ref 0 CAP (This prescription has been renewed) Pancrelipase (Creon) 24,000-76,000-120,000 Units Cap 1 CAP PO QID Digestive Aid #90 Ref 0 CAP Potassium Chloride ER (Potassium Chloride ER) 20 Meq Tab 20 MEQ PO DAILY Electrolyte Replacement #30 Ref 0 TAB Zolpidem (Zolpidem) 10 Mg Tab 10 MG PO HS PRN INSOMNIA Ref 0 TAB Discontinued Medications: Diltiazem CD 24 HR (Diltiazem CD 24 HR) 180 Mg Caper 180 MG PO DAILY #30 Ref 0 CAP Insulin Human NPH Inj (Novolin N Inj) 1,000 Unit/10 Ml Vial 8 UNITS SQ BID Blood Sugar Management #10 Ref 0 ML Billy Bright DO Jun 13, 2016 11:20
[2016-06-13] MEDS ORDERED: Infusaport/Implanted VAD PRN NS Lock Flush IVF (12:15)
[2016-06-13] MEDS ORDERED: REMOVE OLD PATCH T-DERMAL SCH (20:00)
[2016-06-16] MEDS ORDERED: REMOVE OLD PATCH TD SCH (12:00)
== END 2016-06-13 12:50 | disposition home or self-care (01) | DRG 392 ==
LOC: PHED 14:21 → PHEDA 16:08 → HOCA 20:07 → HOCB 20:09 → N04A 06-09 14:45
PROVIDERS: ADMIT Hospitalist; ATTEND Hospitalist
PROC: 0D738ZZ Dilation of Lower Esophagus, Via Natural or Artificial Opening Endoscopic (ICD-10-PCS; principal; 2016-06-09 13:44)
DX: K22.2 Esophageal obstruction (principal); E46 Unspecified protein-calorie malnutrition; E11.22 Type 2 diabetes mellitus with diabetic chronic kidney disease; C78.7 Secondary malignant neoplasm of liver and intrahepatic bile duct; C25.9 Malignant neoplasm of pancreas, unspecified; R13.19 Other dysphagia; G62.9 Polyneuropathy, unspecified; E86.0 Dehydration; I12.9 Hypertensive chronic kidney disease with stage 1 through stage 4 chronic kidney disease, or unspecified chronic kidney disease; K20.9 Esophagitis, unspecified; F32.9 Major depressive disorder, single episode, unspecified; N18.3 Chronic kidney disease, stage 3 (moderate); E78.00 Pure hypercholesterolemia, unspecified; F41.9 Anxiety disorder, unspecified; R11.2 Nausea with vomiting, unspecified; E78.5 Hyperlipidemia, unspecified; M54.9 Dorsalgia, unspecified; G89.29 Other chronic pain; K59.00 Constipation, unspecified; G47.00 Insomnia, unspecified; Z87.891 Personal history of nicotine dependence; T45.1X5A Adverse effect of antineoplastic and immunosuppressive drugs, initial encounter; Z79.4 Long term (current) use of insulin; K22.4 Dyskinesia of esophagus
CPT/HCPCS: 71010; 74230; 80053; 81001; 82948; 83605; 83690; 85025; 93005; 96361; 96374; 96375; C1769; C9113; J0360; J1170; J1642; J1815; J2270; J2405; J3480; J7030